=== PATIENT | female | born 1990 | race Caucasian/White ===

== ENCOUNTER 2023-06-05 20:48 | Outpatient (REF) | payer MEDICAID, SELFPAY ==
[2023-06-08 11:09] LABS: Age Gdln ACOG Testing Note (.); HPV Aptima Negative (Negative); IGP, Aptima HPV, rfx 16/18,45 Note (.)
== END 2023-06-05 20:49 | disposition home or self-care (01) ==
LOC: LAB 20:48
PROVIDERS: Visit Provider Physician Assistant
DX: Z01.419 Encounter for gynecological examination (general) (routine) without abnormal findings (principal)
CPT/HCPCS: 87624; G0145

== ENCOUNTER 2024-07-23 19:29 | Outpatient (REF) | payer MEDICAID, SELFPAY ==
--- OUTSIDE RECORDS SUMMARY | 2024-07-19 15:00 | XMS_ITS | Encounter Summary ---
Demographics Address [address] [place] [address] Home Phone Mobile Phone Email Address Preferred Language ENG Marital Status Unknown Jehovah'S Witness Affiliation Unknown Race Other Race Ethnic Group Unknown Author Organization [facility] Address [facility] [place] [address] Care Team Providers Care Conservation Assistant Name Role Phone Genia Swain DO Unavailable [phone] Genia Swainne DO Primary Care Provi cheng Source Comments In the event this information is protected by the Federal Confidentiality of Alcohol and Drug AbusePatient Records regulations: The Federal rules restrict any use of the information to criminally investigate or prosecute any alcohol or drug abuse patient.[facility] Reason for Visit * Reason Comments Rheumatoid Arthritis Encounter Details Date Type Department Care Team (Late st Contact Info) Description 07/19/2024 3:00 PM EDT Office Visit Rheumatology [address] [place] [address] [place] [address] [place] [address] Seronegative rheumatoid arthritis (HCC) (Primary Dx); High risk medication use; Redness of left eye Social History Tobacco Use Types Packs/Day Years Used Date Smoking Tobacco: Former Cigarettes Smokeless Tobacco: Never Tobacco Cessation:Counseling Given: Not Answered Comments:VAPE MULTIPLE TIMES A DAY PHQ-2 Answer Date Recorded PHQ-2 score 0 07/18/2024 Area Deprivation Index Answer Date Hemanth rded National Score (1-100), lower number is lower ri sk 86 08/31/2022 State Score (1-10), lower number is lower risk 8 08/31/2022 Data from: https://www.neighborhoodatlas.medicine.[facility]/. Last address used for calculation [address] 08/31/2022 Comments Unknown Sex and Gender Information Value Date Recorded Sex Assigned at Not on file Legal Sex Female 10:10 AM EST Gender Identity Not on file Sexual Orientation Not on file documented as of this encounter Last Filed Vital Signs Vital Sign Reading Time Taken Comments Blood Pressure 110/75 07/19/2024 2:50 PM EDT Pulse 67 07/19/2024 2:50 PM EDT Temperature - - Respiratory Rate 18 07/19/2024 2:50 PM EDT Oxygen Saturation - - Inhaled Oxygen Concentration - - Weight 94.6 kg (208 lb 8.9 oz) 07/19/2024 2:50 P M EDT Height 177.8 cm (5' 10 ) 07/19/2024 2:50 PM EDT Body Mass Index 29.92 07/19/2024 2:50 PM EDT documented in this encounter Progress Notes * Eliceo Bright MD - 07/19/2024 2:47 PM EDT Images from the original note were not included. Rheumatology Outpatient Clinic Date of Service: 07/19/2024 Patient: Ivis Gray Medical Record: [id number] Primary Care Physician: Genia Blood DO Last Rheumatology visit: 01/30/2024 (with Jose Hopkins) History of Present Illness Ivis Gray is a 34 year old female who presents on 07/19/2024 for an in-person visit for evaluation of Rheumatoid Arthritis. She is currently taking methotrexate sodium, tofacitinib citrate. Ivis is both RF - 9 (04/18/2022) and CCP - 13.5 (04/18/2022) negative. Her most recent FARHANA was negative (04/18/2022). HISTORY OF PRESENT ILLNESS Ivis Gray is a 34 female from [place], [place] with PMHx of anxiety, depression, endometriosis, migraines, tobacco use (vape), and seronegative rheumatoid arthritis who had previously followed closely by my colleague, Sury Fam PA-C. DISEASE HISTORY: Patient reports waking up in November 2021 with stiffness, joint swelling, and aching in her hands. Reports her hands became very swollen to where she couldn't move them. Involved joints include the hands, wrists, knees, feet, and toes. Reports joint swelling in those areas. Pain is worse in the AM.AM joint stiffness the worst till noon but will last all day. PCP initiated PLQ in January 2022 for patient's symptoms. Patient reports possible slight improvement, but overall feels about the same. Possible remote past instance of inflammatory eye disease of the right eye, but unsure if true diagnosis. Patient reports right eye initially thought to have infection, but she ended up seeing an inside parts sales and had to see them multiple times and use many drops to resolve symptoms. Patient doesnot recall a diagnosis of uveitis/iritis/scleritis/episcleritis. She says she was on several eye drops. She says this got better with steroid eye drops, this was ~2020. She went to [facility] in [place], [place]. Denies any known first degree family history of autoimmune conditions. Denies history of psoriasis,IBD, raynaud's, pleural effusion, pericardial effusion, or DVT/PE. There is a history of GAMALIEL in maternal cousin and psoriasis in maternal cousin. OFFICE VISITS: 05/23/22 - Patient with MSK US that show active synovitis in the feet. Patient with seronegative inflammatory arthritis suspect RA phenotype. Patient advised on mechanism of action, administration, monitoring, hold precautions, side effects, and benefits of methotrexate. Patient advised MTX is not compatible with and can cause defects. Patient advised if she desires she would need to be off medication for three months before conception. Patient to take MTX with ramp up to 6 tablets once weekly. Patient to take folic acid 1 mg, once daily. Patient to obtain monitoring labs locally once a month for the first three months than every three months after that. Lab letter sent. Follow up virtually. 08/31/2022 - Patient presents for follow up of inflammatory arthritis, serongative RA phenotype. Patient has not had improvement on MTX 6 tablets weekly and continues to have severe polyarthralgia with joint swelling and AM joint stiffness 3-4 hours. She has had treatment failures of NSADS (celebrex, ibuprofen), hydroxychloroquine and methotrexate. Recommend escalation of therapy to biologic therapy. Patient to inject Humira 40 mg/0.4 mL, 40 mg, subcutaneously once every other week. Patient has negative hepatitis panel and blood tb screening from 04/18/2022 and most recent labs obtained 08/12/2022 CBC/CMP within acceptable limits. She should continue MTX 6 tablets once weekly and folic acid 1 mg daily for now. Will consider de-escalation of MTX after stable on Humira. For her abdominal pain/GERD, patient has had mild improvement on omeprazole 20 mg daily but still has symptoms. Recommend patient take omeprazole 40 mg once daily. If still symptomatic, patient will need referral to specialis t. Follow up in 4 months. 10/03/2022 - Patient presented for acute care visit of left knee swelling and bilateral knee pain. It is too soon after Humira start for it to fully be effective for pain. Risks versus benefits of procedure reviewed with patient and she elected to proceed with left knee aspiration and CSI and right knee CSI. Left knee aspiration was completed first and 6 cc's of serous fluid were obtained. Medrol 40 mg with 4 mL of ropivacaine was administered into the left knee. Patient tolerated well and did not have complications. She did develop vasovagal presyncope after the procedure which resolved with deep breaths, drinking a glass of water, and a cold wash cloth to the forehead. Symptoms of presyncope resolved without incident. Patient still elected to proceed with right knee CSI. Patient tolerated right knee CSI well without complication and was able to ambulate after the procedure. Post-injection instructions were reviewed with the patient and written copy was given. Work letter for [employer] for the next few days was given so that patient can minimize prolonged standing. Follow up asestablished appointment. Continued on Humira and MTX. 10/10/2022 - patient contacted office, significant pain after injections. No fevers, redness, warmth. Humira helping hands/wrists but not knees or ankles. Synovial fluid was NON-INFLAMMATORY with onlyTNC 333 and negative crystal analysis. Likely knees issues are mechanical. Right knee XR 01/14/2022 normal. Recommended MRI knees to further evaluation mechanical etiology of chronic bilateral knee pain and swelling. 12/29/2022 - rheumatology follow-up (virtual and first appointment with me). Taking Humira since 09/28/22 and MTX PO 15 mg weekly + folic acid 1 mg daily. MTX causing fatigue for 3 days and hair loss.AMS 5 hours and only 25% improvement after 3 months of Humira. Lorenzo worse when held MTX for 2 doses. Plan: switch Humira to Simponi 50 mg once per month, continue MTX 15 mg weekly (change to split dose), add-on OTC Mucinex-DM for MTX fatigue. Recommended f/u with ortho for mechanical knee pain and left knee MRI findings of internal derangement. Recommended increase duloxetine from 20 to 40 mg foranxiety and myofascial pain. INTERVAL: - Negative HBV, HCV (01/04/2023) and T-SPOT TB test (01/09/2023) ([facility]) - Normal CBC and normal CMP save for AST slightly elevated at 31 on 01/09/2023 ([facility]) - Insurance preferred Enbrel to Simponi; first Enbrel shipment 01/12/2023 - 01/23/2023 Ortho visit with Susan Cao PA-C: diagnosed with primarily patellofemoral irritation of both knees which is exacerbated by her quadriceps deconditioning. Suggest that we have her fitted with a reaction brace for at least the right knee for now. May consider both knees if necessaryand she feels it would help. Suggest that she discontinue the ibuprofen and we will try meloxicam 15 mg once a day which should be taken with food. Prescription was sent to her pharmacy after discussion of this use and precautions. Will also get her enrolled in a program of physical therapy to helpaddress the quadriceps deconditioning for better patellar control. Follow-up in 6 weeks for recheckif her symptoms persist. May consider a noncrystalline cortisone if necessary. 04/06/2023 - virtual rheumatology follow-up (Jose Hopkins, ) 1. Seronegative RA - Feeling BETTER today. On Enbrel for almost 3 months. Missed 3 doses of Enbrel and MTX when sick with influenza A and felt worse. AM stiffness down from 5 hours to 90-120 mins. Pain is improved in the hands/wrists, elbows, and shoulders, down to 3/10. Feels this works a lot better than Humira. Hasnot tried Mucinex-DM for MTX related fatigue. Possible worsening of existing hair loss with methotrexate. Taking 1 mg folic acid daily. - Reviewed normal methotrexate monitoring labs from 01/09/2023 at [facility]. Plan: continue Enbrel 50 mg SQ weekly, continue MTX 15 mg (split dose), START OTC Mucinex-DM 2. Mechanical knee pain: continue to follow with orthopaedics 3. Anxiety and myofascial pain: continue duloxetine 20 mg (felt paradoxically more anxious on 40 mgdose). 08/09/2023 -- virtual rheumatology follow-up (Jose Hopkins, ) 1. Seronegative RA - Continue to feel quiet well on the current regimen. No missed doses of meds or infections since last visit. AM stiffness 60 minutes, but improved from prior. No significant joint stiffness reported. Taking 2 mg folic acid daily. Mucinex- DM did not make a significant change in MTX-associated fatigue though. Fatigue less bothersome, though. Plan: continue Enbrel 50 mg subcutaneous weekly + MTX 15 mg weekly (split dose) + FA 2 mg daily. 2. Mechanical knee pain --> following with ortho 3. History of anxiety and myofascial pain --> continue duloxetine 20 mg at night INTERVAL HISTORY The patient presents to the Department of Rheumatology for reevaluation and management of her rheumatoid arthritis. The patient is being seen by me for the first time. She carries a diagnosis of seronegative rheumatoid arthritis and had been under the care of Dr. Jose Sparks until recently. Patient 1 last seen in January 2020 for was on combination methotrexate and Enbrel and was switched to combination methotrexate and Xeljanz therapy. Since January she did well on combination therapy andthe plan was to curtail her come off of methotrexate in April 2024 which the patient has done. She is now on Xeljanz 5 mg twice daily as monotherapy. She states this is the best she has done since the diagnosis of her rheumatoid arthritis. She only experiences an element of stiffness in her fingers and wrists in the morning. Prior to that had been fingers, hands, feet and ankles with some wrist involvement in the past. All of the 1 new issue was approximately 3 weeks ago she began to experience watering of the left eye spontaneously. Over time the only was she experiencing watering but she now has redness and pain involving the nasal aspect of her sclera of the left eye. This is becoming more painful. She did see her eye physician who thought it might be an abrasion and is on some topical gel/steroid based medication. Thus far there is have not been much impact. This is the first time she is ever experienced an eye problem like this. Her right eye is uninvolved. She has no other new extra- articular manifestations of rheumatoid arthritis. She does have some bulging disks that have recently flared up and is under the care of her PCP for this. Rheum/Ortho Arthrocentesis Injections (last 5) 10/03/2022 14:10 Injection History Medication - Right 40 mg methylPREDNISolone acetate 40 mg/mL Medication - Left 40 mg methylPREDNISolone acetate 40 mg/mL Location knee Knee Site bilateral knee joints Patient-Entered Data PAIN EVALUATION 07/19/2024 1449 Pain Level: 3 Pain Location: Back-Middle Description: Aching Duration Units: Months may Frequency: Continuous Intervention/Comfort measure: Medication;Reposition;Exercise;Positioning;Other: See comment Comments: chiropractor, PT PROMIS Assessments 07/18/2024 01/30/2024 08/09/2023 PROMIS Assessments Physical Health Percentile 10 4 15 Mental Health Percentile 13 9 13 Pain Score 4 3 3 Pain Interference Percentile 12 8 12 Fatigue Percentile 3 4 8 Physical Function Percentile 18 14 21 RAPID 3 [place] Activities of Daily Living 07/18/2024 2:25 PM 01/30/2024 10:48 AM 08/09/2023 8:50 AM Firstanswer obtained - 04/17/2022 9:47 PM Dress self? With SOME difficulty With SOME difficulty With SOME difficulty With MUCH difficulty Get in and out of bed? With SOME difficulty With SOME difficulty With SOME difficulty With SOME difficulty Walk outdoors? With SOME difficulty With SOME difficulty Without ANY difficulty With SOME difficulty Wash and dry body? With SOME difficulty With SOME difficulty Without ANY difficulty With SOME difficulty Get in and out of car? With SOME difficulty With SOME difficulty Without ANY difficulty With SOME difficulty RAPID 3 Disease Activity Weighed Score Levels: 0 - 1: Near Remission 1.3 - 2.0: Low Severity 2.3 - 4.0: Moderate Severity 4.3 - 10.0: High Severity 07/18/2024 01/30/2024 08/09/2023 RAPID-3 Weighed Score RAPID 3 Weighed Score 4.28 4.78 (High severity ) 3.56 (Moderate severity ) Review of Systems Review of Systems CONSTITUTION: Negative for: Fever and Recent weight change HEENT: Negative for: Nosebleeds, Mouth sores, Trouble swallowing and Dry mouth RESPIRATORY: Negative for: Cough, Shortness of breath and Pain with breathing GASTROINTESTINAL: Negative for: Melena, Diarrhea, Heartburn and Abdominal pain MUSCULOSKELETAL: Positive for: Myalgias and Morning Joint Stiffness Negative for: Arthralgias, Muscle weakness and Joint swelling NEUROLOGICAL: Negative for: Headaches, Numbness and Memory loss SKIN: Positive for: Hair loss Negative for: Rash, Skin changes and Nail changes EYES: Positive for: Eye pain, Eye redness, Eye dryness and Visual disturbance CARDIOVASCULAR: Negative for: Chest pain and Leg swelling GENITOURINARY: Negative for: Dysuria and Hematuria HEMATOLOGIC/LYMPHATIC: Negative for: Swollen glands All other reviewed and negative other than HPI. Past Medical History PAST MEDICAL HISTORY Diagnosis Date Anxiety Depression Endometriosis Mechanical knee pain Migraine Seronegative rheumatoid arthritis (HCC) Tobacco use disorder Past Surgical History No past surgical history on file. Family History FAMILY HISTORY Problem Relation Age of Onset other (thyroid disease) Mother Migraines Mother Gall Stones Father No Known Problems Brother other (GAMALIEL) Maternal cousin Psoriasis Maternal cousin Social History Social History Tobacco Use Smoking status: Former Types: Cigarettes Smokeless tobacco: Never Tobacco comments: VAPE MULTIPLE TIMES A DAY Current Medications DMARDs / Biologics Treatment Start Date Stop Date Stop Reason Comment Diclofenac PO side effects headache and ineffective Hydroxychloroquine 01/2022 side effects palpitations, ineffective Methotrexate PO 15 mg weekly 05/23/2022 present ineffective 10% improvement Prednisone side effects stomach upset Bilateral knee CSI 10/03/2022 Humira 40 mg subcutaneous every 2 weeks 09/28/2022 01/05/2023 ineffective 25% better, helped wrists Enbrel 50 mg subcutaneous weekly 01/12/2023 01/30/2024 ineffective lost efficacy Xeljanz 11 mg daily Rx on 01/30/2024 Current Outpatient Medications Medication Sig folic acid 1 mg tablet Take 1 mg by mouth once daily. LO LOESTRIN FE 1 mg-10 mcg (24)/10 mcg (2) Take 1 tablet by mouth once daily. potassium chloride ER (KLOR-CON) 20 mEq tablet Take 20 mEq by mouth once daily. tiZANidine (ZANAFLEX) 4 mg tablet Take 4 mg by mouth every 6 hours as needed. methotrexate 2.5 mg tablet Take 6 tablets by mouth one time a week. (Patient taking differently: Take 6 tablets by mouth one time a week.) omeprazole (PRILOSEC) 40 mg capsule Take 1 capsule by mouth once daily tofacitinib tablet 5 mg (XELJANZ) Take 1 tablet (5 mg) by mouth two times a day. DULoxetine (CYMBALTA) 20 mg capsule Take 1 capsule by mouth once daily. No current facility-administered medications for this visit. Labs Latest Ref Rng & Units 07/18/2024 02/27/2024 01/30/2024 04/24/2023 CBC WBC 3.70 - 11.00 k/uL 6.16 6.24 7.89 5.6 Hemoglobin 11.5 - 15.5 g/dL 13.4 12.9 12.9 12.1 Hematocrit 36.0 - 46.0 % 40.7 39.3 39.2 37.1 Platelet Count 150 - 400 k/uL 259 318 268 263 Abs Neut (ANC) 1.45 - 7.50 k/uL 3.72 3.63 4.54 3,584 Abs Lymph 1.00 - 4.00 k/uL 1.68 1.99 2.55 1,400 Latest Ref Rng & Units 07/18/2024 02/27/2024 01/30/2024 04/24/2023 CMP Sodium 136 - 144 mmol/L 140 139 140 141 Potassium 3.7 - 5.1 mmol/L 4.0 4.0 3.3 3.9 Chloride 98 - 107 mmol/L 105 104 104 106 CO2 22 - 30 mmol/L 22 25 25 26 Glucose 74 - 99 mg/dL 84 95 81 89 BUN 7 - 21 mg/dL 12 13 10 14 Creatinine 0.58 - 0.96 mg/dL 0.74 0.73 0.68 0.69 Calcium 8.5 - 10.2 mg/dL 9.3 8.9 8.8 8.8 AST 13 - 35 U/L 28 26 19 20 ALT 7 - 38 U/L 20 15 15 18 Alkaline Phosphatase 34 - 123 U/L 47 44 47 43 Latest Ref Rng & Units 01/30/2024 04/18/2022 ESR, WSR WSR 0 - 20 mm/hr 5 2 Latest Ref Rng & Units 01/30/2024 04/18/2022 CRP CRP <0.9 mg/dL <0.3 <0.3 Latest Ref Rng & Units 04/18/2022 C3, C4 C3 86 - 166 mg/dL 109 C4 13 - 46 mg/dL 18 Latest Ref Rng & Units 04/18/2022 RF and CCP Rheumatoid Factor <16 IU/mL <10 CCP Antibody IgG Qualitative Negative Negative CCP Antibody, IgG <20 Units <15 Latest Ref Rng & Units 01/30/2024 01/09/2023 04/18/2022 Hepatitis Screen Hep B Core Ab, IgM NON-REACTIVE NON-REACTIVE Hep B Core Ab, Total Negative Negative Negative Hep B Surf Ab Qual Equivocal NON-REACTIVE Equivocal Hep C Antibody IA Negative Negative Negative Hep B Surface Ag Negative Negative NON-REACTIVE Negative 01/30/2024 04/18/2022 TB Screen TB Interpretation Infection with M. tuberculosis complex is unlikely. If latent tuberculosis infection is highly suspected, a negative result does not rule out the infection. Specimens from immunocompromised patients and those <5 years of age may show false negative results. In case of a contactinvestigation, please repeat 8-12 weeks after a known exposure. Infection with M. tuberculosis complex is unlikely. If latent tuberculosis infection is highly suspected, a negative result does not rule out the infection. Specimens from immunocompromised patients and those <5 years of age may show false negative results. In case of a contact investigation, please repeat 8-12 weeks after a knownexposure. TB Result Negative Negative Latest Ref Rng & Units 04/18/2022 Antibodies FARHANA Negative Negative Imaging Last XR Hand/Finger - Impression Only XR HAND GENERAL 3V PA/LAT/OBL BILATERAL Exam End: 04/18/2022 2:32 PM (Final result) Impression: IMPRESSION: Normal study. Gem Cutter: BLAYNE Transcribe Date/Time: Apr 18 2022 3:00P... Last MRI Hand - Impression Only No resulted procedures found. Last XR Chest - Impression Only XR CHEST 2V FRONTAL/LAT Exam End: 04/18/2022 2:32 PM (Final result) Impression: IMPRESSION: No acute radiographic findings in the chest. ... Last XR Cervical Spine - Impression Only No resulted procedures found. OUTSIDE STUDIES / DATA 01/03/2023: - T-SPOT TB test: negative 01/04/2023: - HBsAb (neg), HBsAg (neg), HBcAb (neg) - HCV Ab (neg) Health Maintenance Current Immunizations Reviewed on 04/04/2023 No immunizations on file. Physical Exam GENERAL APPEARANCE: Well groomed. Alert and oriented x 3. In no distress. VITAL SIGNS: BP 110/75 Pulse 67 Resp 18 Ht 5' 10 (1.78m) Wt 208 lb 8.9 oz (94.6kg) BMI 29.92 kg/(m^2). SKIN: No rash, thickening, nodules, discoloration. EYES: PERRL, EOMI. left eye with scleral injection/erythema on the nasal aspect of the sclera otherwise no other sign of inflammation. HENT: External examination and palpation of the ears and nose normal. Lips, teeth, and gums normal.Oropharynx and tongue normal. No lesions or exudate. NECK: No mass or asymmetry. RESPIRATORY: Normal respiratory effort. Clear to auscultation and percussion. CARDIOVASCULAR: Heart RRR without gallop, murmur, or rub. No bruits across chest or neck. EXTREMITIES: Normal and equal pulses in all 4 extremities. No edema. ABDOMEN: BS normal. No bruits, No tenderness, mass, or hepatosplenomegaly. NEUROLOGIC: Sensory exam normal. MUSCULOSKELETAL EXAMINATION: Soft tissue tender points: None Motor exam: Normal 5+/5+ muscle strength. Normal bulk and tone. Cervical spine: No visible abnormalities. Full ROM. No tenderness to palpation. Thoracic spine: No visible abnormalities. No tenderness to palpation. Lumbar spine: No visible abnormalities. Full ROM. No tenderness to palpation. Joint Exam 07/19/2024 The following joints were examined and normal: Left Sternoclavicular, Right Sternoclavicular, Left Acromioclavicular, Right Acromioclavicular, Left Glenohumeral, Right Glenohumeral, Left Elbow, Right Elbow, Left Wrist, Right Wrist, Left MCP 1, Right MCP 1, Left MCP 2, Right MCP 2, Left MCP 3, Right MCP 3, Left MCP 4, Right MCP 4, Left MCP 5, Right MCP 5, Left IP (thumb), Right IP (thumb), Left PIP 2 (finger), Right PIP 2 (finger), Left PIP 3 (finger), Right PIP 3 (finger), Left PIP 4 (finger), Right PIP 4 (finger), Left PIP 5 (finger), Right PIP 5 (finger), Left Knee, Right Knee, Left Ankle, Right Ankle, Left MTP 1, Right MTP 1, Left MTP 2, Right MTP 2, Left MTP 3, Right MTP 3, Left MTP 4, Right MTP 4, Left MTP 5, Right MTP 5 Joint Exam Data (across time) 07/19/2024 Joint Exam Total Tender 0 Total Swollen 0 Impression Diagnoses: (M06.00) Seronegative rheumatoid arthritis (HCC) (primary encounter diagnosis) (Z79.899) High risk medication use (H57.89) Redness of left eye Plan Orders this visit: Office Visit on 07/19/24 COMPREHENSIVE METABOLIC PANEL COMPLETE BLOOD COUNT AND DIFFERENTIAL folic acid 1 mg tablet LO LOESTRIN FE 1 mg-10 mcg (24)/10 mcg (2) potassium chloride ER (KLOR-CON) 20 mEq tablet tiZANidine (ZANAFLEX) 4 mg tablet Discussed the current status of her seronegative rheumatoid arthritis is stable on monotherapy withXeljanz 5 mg twice daily. Due to the effectiveness of this I am recommending she maintain this and her current supply on Xeljanz is stable. I reviewed her most recent CBC and CMP from yesterday showing good safety stability on the Xeljanz. I am recommending we reassess labs at 3 and 6 months and see her back in 6 months for a visit (can be virtual visit). In terms of the left eye redness and pain there is the possibility this could be representing a scleritis. She will be seeing the eye doctor again in follow-up. If this is in fact scleritis (which seems counterintuitive to me for the extra- articular manifestation of rheumatoid arthritis to flare when the arthritis is responding so well to Xeljanz) she may need to utilize systemic/oral corticosteroids to treat the presumed scleritis. She will keep me posted. Return in about 6 months (around 01/18/2025). I spent a total of 50 minutes on the date of the service which included preparing to see the patient, [id number] patient care, completing clinical documentation, obtaining and/or reviewing separately obtained history, performing a medically appropriate examination, counseling and educating the pat ient/family/caregiver, ordering medications, tests, or procedures, independently interpreting results (not separately reported), and communicating results to the patient/family/caregiver. Medical Decision Making: Problems: Moderate: New problem with uncertain prognosis and 1+ chronic illnesses with change Data: Unique test result(s) reviewed: 3+ Risk: High: High risk from testing/treatment Medical Decision Making Level: 4 - Moderate Eliceo Bright MD Rheumatology Date: July 19, 2024 Time: 2:47 PM documented in this encounter Plan of Treatment Upcoming Encounters Date Type Department Care Team (Late st Contact Info) Description 07/30/2024 9:00 AM EDT Specialty Pharmacy [facility] [address] [place], [place] [id number] [place] [address] Pharmacist, [facility] [address] [place] [address] Refill Xeljanz - PAx 04/21/25 01/21/2025 9:00 AM [facility] [address] [place] [address] [place] [address] [facility] [place], [place] [id number] 6 month follow up Scheduled Orders Name Type Priority Associated Diagnoses Orde r Schedule COMPREHENSIVE METABOLIC PANEL Lab Routine Seronegative rheumatoid arthritis (HCC) Expected: 07/19/2024 (Approximate), Expires: 10/18/2024 COMPLETE BLOOD COUNT AND DIFFERENTIAL Lab Routine Seronegative rheumatoid arthritis (HCC) Expected: 07/19/2024 (Approximate), Expires: 10/18/2024 documented as of this encounter Visit Diagnoses Diagnosis Seronegative rheumatoid arthritis (HCC)- Primary Rheumatoid arthritis High risk medication use Encounter for long-term (current) use of other medications Redness of left eye Redness or discharge of eye documented in this encounter Care Teams Conservation Assistant Relationship Specialty Start Date End Date Genia Swain DO [address] [place] [address] PCP - General Internal Medicine 08/09/23 Genia Swain, [address] [place] [id number] Referring Internal Medicine 04/06/22 documented as of this encounter
--- OUTSIDE RECORDS SUMMARY | 2024-07-23 11:00 | XMS_ITS | Encounter Summary ---
Author Organization [facility] Address [address] [place] [address] Care Team Providers Care Plc Controls Engineer Name Role Phone Genia Steel DO Primary Care Provider Genia Steel DO Unavailable [phone] Reason for Visit * Reason Comments Gynecologic Exam Encounter Details Date Type Department Care Team (Late st Contact Info) Description 07/23/2024 11:00 AM EDT Office Visit [facility] [address] [place] [address] Astrid Leach PA [address] [facility] [address] [place], [facility]11 Well woman exam with routine gynecological exam Social History Tobacco Use Types Packs/Day Years Used Date Smoking Tobacco: Former Cigarettes Q uit: 06/13/2020 Smokeless Tobacco: Never Alcohol Use Standard Drinks/Week Comments Not Currently 0 (1 standard drink = 0.6 oz pur e alcohol) Pt does not drink ETOH AUDIT-C Answer Date Recorded Frequency of Alcohol Consumption Not on file 03/15/2023 Q2: How many drinks containi ng alcohol do you have on a typical day when you are drinking? Patient does not drink Frequency of Binge Drinking Not on file 02/15 Comments Unknown Sex and Gender Information Value Date Recorded Sex Assigned at Not on file Legal Sex Female 6:56 PM EDT Gender Identity Not on file Sexual Orientation Not on file documented as of this encounter Last Filed Vital Signs Vital Sign Reading Time Taken Comments Blood Pressure 112/80 07/23/2024 11:11 AM EDT Pulse - - Temperature - - Respiratory Rate - - Oxygen Saturation - - Inhaled Oxygen Concentration - - Weight 93 kg (205 lb) 07/23/2024 11:11 AM EDT Height - - Body Mass Index 29.41 04/22/2022 12:00 PM EST documented in this encounter Progress Notes * FAYE Enriquez - 07/23/2024 11:00 AM EDT Reason for Appointment: Patient ID: Ivis Gray is a 34 y.o. female who presents for Gynecologic Exam Patient presents today for Annual Exam. MEDICATIONS Current Outpatient Medications Medication Instructions albuterol HFA (Ventolin HFA) 90 mcg/act inhaler 2 puffs, Inhalation, Every 4 hours PRN cetirizine (ZyrTEC) 10 MG tablet Take by mouth DULoxetine (CYMBALTA) 20 mg, Oral, Daily, Do not crush or chew. fluticasone (Flonase) 50 MCG/ACT nasal spray 1 spray, Daily norethindrone-ethinyl estradiol-iron (Lo Loestrin Fe) 1 MG-10 MCG / 10 MCG tablet 1 tablet, Oral, Daily, Take 1 tablet by mouth daily omeprazole (PRILOSEC) 40 mg, Oral, Daily RT potassium chloride CR (Klor-Con M20) 20 MEQ ER tablet 20 mEq, Oral, Daily, Do not crush or chew. tiZANidine (ZANAFLEX) 4 mg, Oral, Every 6 hours PRN tofacitinib (XELJANZ) 5 mg, 2 times daily ALLERGIES Allergies Allergen Reactions Butalbital Other Other Reaction(s): Shakey,Strange feeling Escitalopram Other Other Reaction(s): increased depression/anxiety/mood swings Meloxicam GI intolerance Paroxetine Rash Other Reaction(s): painful skin lesions Penicillins Unknown and Rash Venlafaxine Other Other Reaction(s): no emotions Butalbital-Acetaminophen PROBLEMS Active Ambulatory Problems Diagnosis Date Noted Gastro-esophageal reflux disease without esophagitis 02/27/2023 Mild intermittent asthma without complication ([facility]) 02/27/2023 Seronegative rheumatoid arthritis ([facility]) 02/27/2023 Chronic migraine without aura without status migrainosus, not intractable ([facility]) 03/15/2023 Resolved Ambulatory Problems Diagnosis Date Noted No Resolved Ambulatory Problems No Additional Past Medical History HISTORY PAST MEDICAL HISTORY SOCIAL HISTORY Past Medical History: Diagnosis Date Gastro-esophageal reflux disease without esophagitis 02/27/2023 Mild intermittent asthma without complication ([facility]) 02/27/2023 Seronegative rheumatoid arthritis ([facility]) 02/27/2023 She is following with [facility] Social History Tobacco Use Smoking status: Former Current packs/day: 0.00 Types: Cigarettes Quit date: 06/13/2020 Years since quittin.1 Smokeless tobacco: Never Vaping Use Vaping status: Every Day Substances: Nicotine, Flavoring Substance Use Topics Alcohol use: Not Currently Comment: Pt does not drink ETOH Drug use: Not Currently FAMILY HISTORY Family History Problem Relation Name Age of Onset Other (thyroid disorde) Mother Migraines Mother Bipolar disorder Mother No Known Problems Father Autism Brother SURGICAL HISTORY No past surgical history on file. REVIEW OF SYSTEMS Review of Systems: Review of Systems Constitutional: Negative. HENT: Negative. Eyes: Negative. Respiratory: Negative. Cardiovascular: Negative. Gastrointestinal: Negative. Genitourinary: Negative. Musculoskeletal: Negative. Skin: Negative. Neurological: Negative. All other systems reviewed and are negative. Hematological: Negative. Endocrine: Negative. Allergic/Immunologic: Negative. OBJECTIVE Objective: Physical Exam Constitutional: Appearance: Normal appearance. She is well-developed. Genitourinary: Vulva normal. Cardiovascular: Rate and Rhythm: Normal rate and regular rhythm. Pulmonary: Effort: Pulmonary effort is normal. Breath sounds: Normal breath sounds. Abdominal: General: Bowel sounds are normal. There is no distension. Palpations: Abdomen is soft. Tenderness: There is no abdominal tenderness. There is no guarding or rebound. Musculoskeletal: General: No swelling. Normal range of motion. Right lower leg: No edema. Left lower leg: No edema. Neurological: Mental Status: She is alert and oriented to person, place, and time. Skin: General: Skin is warm and dry. Psychiatric: Mood and Affect: Mood normal. Behavior: Behavior normal. Vitals and nursing note reviewed. Exam conducted with a checker/stocker present. Vitals: Estimated body mass index is 29.41 kg/m?? as calculated from the following: Height as of 04/22/22: 5' 10 . Weight as of this encounter: 205 lb. BP: 112/80 Patient's last menstrual period was 07/10/2024 (exact date). ASSESSMENT & PLAN ICD-10-CM 1. Well woman exam with routine gynecological exam Z01.419 Pap Smear HPV DNA probe, amplified Annual Exam: Patient presents today for an annual exam. Patient states she is doing well and has no complaints. Pap was obtained without difficulty. Orders Placed This Encounter Procedures HPV DNA probe, amplified Patient has small follicular area of redness I believe from self tanning lotion, we will send in keflex. Pt to call if symptoms change or worsen Follow Up: Patient is to return in one year for annual unless needed otherwise. Documented by Radha Villanueva MA on behalf of: FAEY Enriquez documented in this encounter Plan of Treatment Upcoming Encounters Date Type Department Care Team (Late st Contact Info) Description 07/29/2025 11:00 AM EDT Office Visit [facility] [address] [place] [address] Astrid Leach PA [address] [facility] [place] [address] Scheduled Orders Name Type Priority Associated Diagnoses Orde r Schedule Pap Smear Pathology and Cytology Routine Well woman exam with routine gynecological exam Ordered: 07/23/2024 HPV DNA probe, amplified Microbiology Routine Well woman exam with routine gynecological exam Ordered: 07/23/2024 documented as of this encounter Visit Diagnoses Diagnosis Well woman exam with routine gynecological exam Routine gynecological examination documented in this encounter Care Teams Plc Controls Engineer Relationship Specialty Start Date End Date Genia Steel DO [address] [place] [address] PCP - General Internal Medicine 06/21/22 Genia Steel DO [address] [place] [address] PCP - [facility] TANK FARM OPERATOR 05/15/23 documented as of this encounter
--- OUTSIDE RECORDS SUMMARY | 2024-07-23 19:32 | XMS_ITS | Clinical Summary ---
Author Organization [facility] Address [address] [place] [address] Care Team Providers Care Customs And Immigration Officer Name Role Phone Itz CabreraGenia neil DO Unavailable [phone] Genia Swain DO Primary Care Provi cheng Allergies Active Allergy Reactions Criticality Noted Date Comments Penicillins Rash Low 03/21/2014 Medications DULoxetine (CYMBALTA) 20 mg capsule Take 1 capsule by mouth once daily. 3 Active tofacitinib tablet 5 mg (XELJANZ)Indicat ions:Seronegativ e rheumatoid arthritis (HCC) Take 1 tablet (5 mg) by mouth two times a day. 60 tablet 11 07/03/2024 11:55 AM EDT 4 01/30/20 25 Active omeprazole (PRILOSEC) 40 mg capsuleIndicatio ns:Gastroesophag eal reflux disease, unspecified whether esophagitis present Take 1 capsule by mouth once daily 90 capsule 5 Active methotrexate 2.5 mg tabletIndication s:Seronegative rheumatoid arthritis (HCC) Take 6 tablets by mouth one time a week. 72 tablet 5 Active Additional Information Patient taking differently: No details specified, Reason: Dosage Adjustment (stopped due to illness/ provider change .), Reported on 07/19/2024 folic acid 1 mg tablet Take 1 mg by mouth once daily. 3 Active LO LOESTRIN FE 1 mg-10 mcg (24)/10 mcg (2) Take 1 tablet by mouth once daily. 4 Active potassium chloride ER (KLOR-CON) 20 mEq tablet Take 20 mEq by mouth once daily. 4 02/02/20 25 Active tiZANidine (ZANAFLEX) 4 mg tablet Take 4 mg by mouth every 6 hours as needed. Active Active Problems Problem Noted Date Diagnosed Date Patellofemoral disorder of both knees 01/23/2023 Primary osteoarthritis of both knees 01/23/2023 Chronic pain of left knee 01/23/2023 Anxiety 12/28/2022 12/28/2022 Current smoker 12/28/2022 12/28/2022 Overview (12/28/2022): Added secondary to documentation in Social History. Depression 12/28/2022 12/28/2022 Endometriosis 12/28/2022 12/28/2022 Migraine 12/28/2022 12/28/2022 Encounters Date Type Department Care Team Description 07/19/2024 3:00 PM EDT Office Visit Rheumatology [address] [place] [address] Eliceo Bright MD Seronegative rheumatoid arthritis (HCC) (Primary Dx); High risk medication use; Redness of left eye 07/19/2024 Telephone Rheumatology [address] [place] [address] Eliceo Bright MD Resolution Manager - Other ([facility] ) 07/18/2024 Travel 06/25/2024 [facility]ty [facility] [address] [place] [address] Merlyn Randall RPh SPP Inflammatory Conditions - Medication Refill (Xeljanz) 05/28/2024 Specialty Pharmacy [facility] [address] [place] [address] Merlyn Randall RPh SPP Inflammatory Conditions - Medication Refill (Xeljanz) 04/23/2024 Specialty Pharmacy [facility] [address] [place] [address] Merlyn Randall RPh SPP Inflammatory Conditions - Medication Refill (Xeljanz) 04/22/2024 Specialty Pharmacy [facility] [address] [place] [address] Merlyn Randall RPh SPP Inflammatory Conditions - Follow-up (Xeljanz); Insurance Authorization ([place] Renewal Approved) from Last 3 Months Family History Medical History Relation Comments No Known Problems Brother Gall Stones Father GAMALIEL Maternal cousin 1 Psoriasis Maternal cousin 2 Migraines Mother thyroid disease Mother Relation Status Comments Brother Alive Father Alive Maternal cousin 1 Alive Maternal cousin 2 Alive Mother Alive Social History Tobacco Use Types Packs/Day Years [...] is lower risk 8 08/31/2022 Data from: https://www.neighborhoodatlas.medicine.[facility]/. Last address used for calculation [address] [facility] 08/31/2022 Comments Unknown Sex and Gender Information Value Date Recorded Sex Assigned at Not on file Legal Sex Female 10:10 AM EST Gender Identity Not on file Sexual Orientation Not on file Last Filed Vital Signs Vital Sign Reading Time Taken Comments Blood Pressure 110/75 07/19/2024 2:50 PM EDT Pulse 67 07/19/2024 2:50 PM EDT Temperature 36.7 C (98 F) 10/03/2022 1:51 PM EDT Respiratory Rate 18 07/19/2024 2:50 PM EDT Oxygen Saturation - - Inhaled Oxygen Concentration - - Weight 94.6 kg (208 lb 8.9 oz) 07/19/2024 2:50 P M EDT Height 177.8 cm (5' 10 ) 07/19/2024 2:50 PM EDT Body Mass Index 29.92 07/19/2024 2:50 PM EDT Plan of Treatment Upcoming Encounters Date Type Department Care Team (Late st Contact Info) Description 07/30/2024 9:00 AM EDT Specialty [facility]acy [facility] [address] [address] Pharmacist, [facility] [address] [place] [address] [place] [address] Refill Xeljanz - PAx 04/21/25 01/21/2025 9:00 AM EST [facility] [address] [place] [address] [place] [address] [facility] [place], [place] [id number] 6 month follow up Health Maintenance Due Date Last Done Comments Covid-19 Vaccine (#1) 1995 Cervical Cancer Screening 2001 HIV Screening 01/07/2008 DTaP,Tdap,Td Vaccine (1 - Tdap) 2009 Hepatitis B Vaccine (1 of 3 - 19+ 3-dose series) 2009 Pneumococcal Vaccine (1 of 2 - PCV) 2009 Shingrix Vaccine (1 of 2) 2009 Influenza Vaccine (Season Ended) 2024 Hepatitis C Screening Completed 01/30/2024 , 01/30/2024, 01/09/2023, Additional history exists Procedures Procedure Name Priority Date/Time Associated Diagnosis Comments COMPREHENSIVE METABOLIC PANEL Routine 07/18/2024 8:57 AM EDT Long-term current use of tofacitinib Seronegative rheumatoid arthritis (HCC) CBC + DIFF Routine 07/18/2024 8:57 AM EDT Long-term current use of tofacitinib Seronegative rheumatoid arthritis (HCC) HEPATITIS C ANTIBODY IA WITH CONFIRMATION Routine 01/30/2024 1:57 PM EST Seronegative rheumatoid arthritis (HCC) from Last 3 Months or Most Recently Relevant to Health Maintenance Results * COMPREHENSIVE METABOLIC PANEL (07/18/2024 8:57 AM EDT) Protein, Total 7.5 6.3 - 8.0 g/dL 07/18/2024 6:06 PM EDT [facility] Albumin 4.2 3.9 - 4.9 g/dL 07/18/2024 6:06 PM EDT [facility] Calcium, Total 9.3 8.5 - 10.2 mg/dL 07/18/2024 6:06 PM [facility] Bilirubin, Total 0.3 0.2 - 1.3 mg/dL 07/18/2024 6:06 PM [facility] Alkaline Phosphatase 47 34 - 123 U/L 07/18/2024 6:06 PM [facility] AST 28 13 - 35 U/L 07/18/2024 6:06 PM [facility] ALT 20 7 - 38 U/L 07/18/2024 6:06 PM [facility] Glucose 84 74 - 99 mg/dL 07/18/2024 6:06 PM [facility] Comment: The [place] Diabetes Association (ADA) provides guidance for cutoff values for fasting glucose and random glucose. The ADA defines fasting as no caloric intake for at least 8 hours. Fasting plasma glucose results between 100 to 125 mg/dL indicate increased risk for diabetes (prediabetes). Fasting plasma glucose results greater than or equal to 126 mg/dL meet the criteria for diagnosis of diabetes. In the absence of unequivocal hyperglycemia, results should be confirmed by repeat testing. In a patient with classic symptoms of hyperglycemia or hyperglycemic crisis, random plasma glucose results greater than or equal to 200 mg/dL meet the criteria for diagnosis of diabetes. Reference: Standards of Medical Care in Diabetes 2016, [place] Diabetes Association. Diabetes Care. 2016.39(Suppl 1). BUN 12 7 - 21 mg/dL 07/18/2024 6:06 PM [facility] Creatinine 0.74 0.58 - 0.96 mg/dL 07/18/2024 6:06 PM [facility] Sodium 140 136 - 144 mmol/L 07/18/2024 6:06 PM [facility] Potassium 4.0 3.7 - 5.1 mmol/L 07/18/2024 6:06 PM [facility] Chloride 105 98 - 107 mmol/L 07/18/2024 6:06 PM [facility] CO2 22 22 - 30 mmol/L 07/18/2024 6:06 PM [facility] Anion Gap 13 8 - 15 mmol/L 07/18/2024 6:06 PM [facility] Estimated Glomerular Filtration Rate 109 >=60 mL/min/1.7 3m 07/18/2024 6:06 PM EDT [facility] Comment:Estimated Glomerular Filtration Rate (eGFR) is calculated using the 2020 CKD-EPI creatinine equation. This equation utilizes serum creatinine, sex, and age as parameters. The creatinine assay has traceable calibration to isotope dilution- mass spectrometry. Refer to KDIGO guidelines for clinical interpretation. In patients with unstable renal function, e.g. those with acute kidney injury, the eGFR may not accurately reflect actual GFR. Blood BLOOD SPECIMEN / Unknown Venipuncture / Unknown 07/18/2024 8:57 AM EDT 07/18/2024 8:57 AM EDT us Jose Hopkins DO LABORATORY Final Resul t [facility] [address] [place] [address], * COMPLETE BLOOD COUNT AND DIFFERENTIAL (07/18/2024 8:57 AM EDT) WBC 6.16 3.70 - 11.00 k/uL 07/18/2024 9:09 AM EDT [facility] RBC 4.57 3.90 - 5.20 m/uL 07/18/2024 9:09 AM EDT [facility] Hemoglobin 13.4 11.5 - 15.5 g/dL 07/18/2024 9:09 AM EDT [facility] Hematocrit 40.7 36.0 - 46.0 % 07/18/2024 9:09 AM EDT [facility] MCV 89.1 80.0 - 100.0 fL 07/18/2024 9:09 AM EDT [facility] MCH 29.3 26.0 - 34.0 pg 07/18/2024 9:09 AM EDT [facility] MCHC 32.9 30.5 - 36.0 g/dL 07/18/2024 9:09 AM EDT [facility] RDW-CV 13.9 11.5 - 15.0 % 07/18/2024 9:09 AM EDT [facility] Platelet Count 259 150 - 400 k/uL 07/18/2024 9:09 AM EDT [facility] MPV 10.1 9.0 - 12.7 fL 07/18/2024 9:09 AM EDT [facility] Neutrophils % 60.3 % 07/18/2024 9:09 AM EDT [facility] Abs Neut 3.72 1.45 - 7.50 k/uL 07/18/2024 9:09 AM EDT [facility] Lymphocytes % 27.3 % 07/18/2024 9:09 AM EDT [facility] Abs Lymph 1.68 1.00 - 4.00 k/uL 07/18/2024 9:09 AM EDT [facility] Monocytes % 10.1 % 07/18/2024 9:09 AM EDT [facility] Abs Mccracken 0.62 <0.87 k/uL 07/18/2024 9:09 AM EDT [facility] Eosinophils % 1.6 % 07/18/2024 9:09 AM EDT [facility] Abs Eosin 0.10 <0.46 k/uL 07/18/2024 9:09 AM EDT [facility] Basophils % 0.5 % 07/18/2024 9:09 AM EDT [facility] Abs Baso 0.03 <0.11 k/uL 07/18/2024 9:09 AM EDT [facility] Immature Granulocytes % 0.2 % 07/18/2024 9:09 AM EDT [facility] Abs Immature Gran <0.03 <0.10 k/uL 025 9:09 AM EDT [facility] NRBC 0.0 /100 WBC 07/18/2024 9:09 AM EDT [facility] Absolute nRBC <0.01 <0.01 k/uL 07/18/2024 9:09 AM EDT [facility] Diff Type Auto 07/18/2024 9:09 AM EDT [facility] Blood BLOOD SPECIMEN / Unknown Venipuncture / Unknown 07/18/2024 8:57 AM EDT 07/18/2024 8:57 AM EDT Jose Hopkins DO LABORATORY Final Resul t [facility] [address] [place] [address] * HEPATITIS C ANTIBODY IA WITH CONFIRMATION (01/30/2024 1:57 PM EST) Hep C Antibody IA Negative Negative 01/31/2024 11:32 AM EST [facility] Comment:The result suggests no evidence of active infection with Hepatitis C virus. Should recent infection be suspected, repeat testing may be considered 4-6 weeks after this draw. Blood BLOOD SPECIMEN / Unknown Venipuncture / Unknown 01/30/2024 1:57 PM EST 01/30/2024 1:57 PM EST Jose Hopkins DO LABORATORY Final Resul t Performing Organization Address City/[facility]/ZIP Co de Phone Number [facility] [address] [address], from Last 3 Months or Most Recently Relevant to Health Maintenance Insurance * Guarantor: Ivis Gray Account Type Relation to Patient Date of Phone Billing Address Personal/Family Self 1990 [address] [place] [address] [facility] Care Teams Customs And Immigration Officer Relationship Specialty Start Date End Date Genia Swain DO [address] [facility] [address] [place] [id number] PCP - General Internal Medicine 08/09/23 Genia Swain DO [address] [facility] [address] [place] [phone] Referring Internal Medicine 04/06/22
--- OUTSIDE RECORDS SUMMARY | 2024-07-23 19:32 | XMS_ITS | Encounter Summary ---
Demographics Address [address] [place] [address] Home Phone Mobile Phone Email Address Preferred Language ENG Marital Status Unknown Christian Affiliation Unknown Race Other Race Ethnic Group Unknown Author Organization [facility] Address [facility] [place] [address] Care Team Providers Care Supervisor Cell Operation Name Role Phone Genia Swainne DO Unavailable [phone] Genia Swainne DO Primary Care Provi cheng Source Comments In the event this information is protected by the Federal Confidentiality of Alcohol and Drug AbusePatient Records regulations: The Federal rules restrict any use of the information to criminally investigate or prosecute any alcohol or drug abuse patient.[facility] Encounter Details Date Type Department Care Team ([facility] st Contact Info) Description 08/31/2022 Patient Msg Rheumatology [address] [id number] Provider, [facility] Appointment Scheduled Social History Tobacco Use Types Packs/Day Years Used Date Smoking Tobacco: Former Cigarettes Smokeless Tobacco: Never Comments:VAPE MULTIPLE TIMES A DAY PHQ-2 Answer Date Recorded PHQ-2 score 2 08/27/2022 Area Deprivation Index Answer Date Hemanth rded National Score (1-100), lower number is lower ri sk 86 08/31/2022 State Score (1-10), lower number is lower risk 8 08/31/2022 Data from: https://www.neighborhoodatlas.medicine.[place].edu/. Last address used for calculation [address] [facility] 08/31/2022 Comments Unknown Sex and Gender Information Value Date Recorded Sex Assigned at Not on file Legal Sex Female 10:10 AM EST Gender Identity Not on file Sexual Orientation Not on file documented as of this encounter Plan of Treatment Upcoming Encounters Date Type Department Care Team (Late st Contact Info) Description 07/30/2024 9:00 AM EDT Specialty Pharmacy [facility] [address] [facility] [address] [place] [address] Pharmacist, Specialtygroup 2 [facility] [place] [address] Refill Xeljanz - PAx 04/21/25 01/21/2025 9:00 AM EST [facility] [address] [place] [address] [place] [address] [facility] [place] [address] 6 month follow up documented as of this encounter Visit Diagnoses Not on filedocumented in this encounter Care Teams Supervisor Cell Operation Relationship Specialty Start Date End Date Genia Swain DO [address] [place] [address] PCP - General Internal Medicine 08/09/23 Genia Swain DO [address] [place] [phone] Referring Internal Medicine 04/06/22 documented as of this encounter
--- OUTSIDE RECORDS SUMMARY | 2024-07-23 19:32 | XMS_ITS | Encounter Summary ---
Demographics Address [address] [place] [address] Home Phone Mobile Phone Email Address Preferred Language ENG Marital Status Unknown Zoroastrian Affiliation Unknown Race Other Race Ethnic Group Unknown Author Organization [facility] Address [facility] [place] [address] Care Team Providers Care Director Internal Communications Name Role Phone Genia Swain DO Unavailable [phone] Genia Swainne DO Primary Care Provi cheng Source Comments In the event this information is protected by the Federal Confidentiality of Alcohol and Drug AbusePatient Records regulations: The Federal rules restrict any use of the information to criminally investigate or prosecute any alcohol or drug abuse patient.[facility] Encounter Details Date Type Department Care Team ([facility] st Contact Info) Description 02/01/2024 Patient Msg [facility] [address] [place] [address] Merlyn Randall RPh New Medication Action Required Social History Tobacco Use Types Packs/Day Years Used Date Smoking Tobacco: Former Cigarettes Smokeless Tobacco: Never Comments:VAPE MULTIPLE TIMES A DAY PHQ-2 Answer Date Recorded PHQ-2 score 2 04/06/2023 Area Deprivation Index Answer Date Hemanth rded National Score (1-100), lower number is lower ri sk 86 08/31/2022 State Score (1-10), lower number is lower risk 8 08/31/2022 Data from: https://www.neighborhoodatlas.medicine.[facility].edu/. Last address used for calculation [address] [facility] 08/31/2022 Comments Unknown Sex and Gender Information Value Date Recorded Sex Assigned at Not on file Legal Sex Female 10:10 AM EST Gender Identity Not on file Sexual Orientation Not on file documented as of this encounter Plan of Treatment Upcoming Encounters Date Type Department Care Team (Late st Contact Info) Description 07/30/2024 9:00 AM EDT Specialty Pharmacy [facility] [address] [facility] [address] [place] [address] Pharmacist, Specialtygroup 2 [address] [place] [address] Refill Xeljanz - PAx 04/21/25 01/21/2025 9:00 AM EST [facility] [address] [place] [address] [place] [address] [facility] [place] [address] 6 month follow up documented as of this encounter Visit Diagnoses Not on filedocumented in this encounter Care Teams Director Internal Communications Relationship Specialty Start Date End Date Genia Swain DO [address] [facility] [address] [place] [address] PCP - General Internal Medicine 08/09/23 Genia Swain DO [address] [place] [phone] Referring Internal Medicine 04/06/22 documented as of this encounter
--- OUTSIDE RECORDS SUMMARY | 2024-07-23 19:32 | XMS_ITS | Clinical Summary ---
Author Organization [facility] Address [address] [place] [address] Care Team Providers Care Shrimp Packer Name Role Phone Genia Steel DO Primary Care Provider Genia Steel DO Unavailable [phone] Allergies Active Allergy Reactions Criticality Noted Date Comments Butalbital Other Medium 03/14/2023 Other Reaction(s): Shakey,Strange feeling Butalbital-Acetaminophen 06/05/2023 Escitalopram Other Medium 03/14/2023 Other Reaction(s): increased depression/anxiety/moo d swings Meloxicam GI intolerance Medium 06/18/2024 Paroxetine Rash Medium 03/14/2023 Other Reaction(s): painful skin lesions Penicillins Unknown,Rash Medium 03/21/2014 Venlafaxine Other Medium 03/14/2023 Other Reaction(s): no emotions Medications albuterol HFA (Ventolin HFA) 90 mcg/act inhalerIndication s:Mild intermittent asthma with status asthmaticus (CMS/HCC) Inhale 2 puffs every 4 (four) hours if needed for wheezing or shortness of breath 18 g 3 07/27/19 24 Active DULoxetine (Cymbalta) [address] capsuleIndication s:LUDA (generalized anxiety disorder) (CMS/HCC) Take 1 capsule (20 mg) by mouth Daily Do not crush or chew. 90 capsule 3 10/19/19 24 Active potassium chloride CR (Klor-Con M20) 20 MEQ ER tabletIndications :Hypokalemia Take 1 tablet (20 mEq) by mouth Daily Do not crush or chew. 30 tablet 3 02/02/20 24 025 Active norethindrone-eth inyl estradiol-iron (Lo Loestrin Fe) 1 MG-10 MCG / 10 MCG tabletIndications :Endometriosis Take 1 tablet by mouth Daily Take 1 tablet by mouth daily 28 tablet 11 05/04/19 25 026 Active omeprazole (PriLOSEC) [address] capsuleIndication s:Gastro-esophage al reflux disease without esophagitis Take 1 capsule (40 mg) by mouth in the morning. 90 capsule 3 05/28/19 25 Active tofacitinib (Xeljanz) 5 MG tablet Take 5 mg by mouth in the morning and 5 mg before bedtime. Do not crush, chew or split. Swallow whole. Active tiZANidine (Zanaflex) 4 MG tabletIndications :Muscle spasm Take 1 tablet (4 mg) by mouth every 6 (six) hours if needed for muscle spasms for up to 10 days 30 tablet 06/20/19 25 Active fluticasone (Flonase) 50 MCG/ACT nasal spray Administer 1 spray into each nostril Daily Shake gently. Before first use, prime pump. After use, clean tip and replace cap. Active cetirizine (ZyrTEC) 10 MG tablet Take by mouth Active cephalexin (Keflex) 500 MG capsuleIndication s:Well woman exam with routine gynecological exam Take 1 capsule (500 mg) by mouth in the morning and 1 capsule (500 mg) in the evening and 1 capsule (500 mg) before bedtime. Do all this for 7 days. 21 capsule 07/24/19 25 025 Active folic acid (Folvite) 1 MG tablet Take 1 mg by mouth in the morning. 05/15/19 23 025 Discontin ued(Thera py completed ) methotrexate (Trexall) 15 MG tablet Take 15 mg by mouth 1 (one) time per week. Follow directions carefully, and ask to explain any part you do not understand. Take exactly as directed. 025 Discontin ued(Thera py completed ) Active Problems Problem Noted Date Diagnosed Date Chronic migraine without aur a without status migrainosus, not intractable 03/15/2023 Overview (03/15/2023): 02/2023: Hx migraines, but in the last few years only a couple per year. Since having influenza in Feb, she has had a constant GUEVARA with some exacerbations that have put her in bed. Assessment & Plan (03/15/2023 10:46 AM EST): Discussed options to try to break this GUEVARA cycle. Would like to avoid steroids just since she has been on them quite a bit in the past for her RA. I have samples of Qulipta in the office that she will picker and packer. She will take 1 a day for the next week (even if GUEVARA resolves sooner). 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 She is taking methotrexate She started Zeljantz ~01/2025 ( goal is to be able to stop the methotrexate) Encounters Date Type Department Care Team Description 07/23/2024 11:00 AM EDT Office Visit [facility] [address] [facility] [place] [address] Astrid Leach PA Well woman exam with routine gynecological exam 07/23/2024 Bamboo flowsheet [facility] [address] [facility] [place] [address] Astrid Leach PA 07/22/2024 Travel 07/18/2024 Clinisync Result Encounter [facility] External Department Unsolicited Provider, Generic External Data 06/25/2024 10:30 AM EDT Ancillary Procedure [facility] [address] [address] Decreased range of motion of lumbar spine; Radicular pain of lumbosacral region; Abnormal x-ray of lumbar spine 06/25/2024 Results Follow-Up [facility] [address] [place] [address] Genia Steel, DO L4-L5 disc bulge; Decreased range of motion of lumbar spine; Radicular pain of lumbosacral region 06/25/2024 Travel 06/24/2024 Travel 06/19/2024 Telephone [facility] [address] [place] [address] Genia Steel, DO ordering MRI 06/19/2024 Results Follow-Up [facility] [address] [place] [address] Genia Steel, DO 06/19/2024 Telephone [facility] [address] [place] [address] [place], [place] Back Pain 06/18/2024 12:30 PM EDT Ancillary Procedure [facility] XRAY [address] [place] [address] Acute left-sided low back pain with left-sided sciatica 06/18/2024 11:00 AM EDT Office Visit [facility] [address] [place] [address] Genia Steel, DO Acute left-sided low back pain with left-sided sciatica (Primary Dx); Seronegative rheumatoid arthritis (CMS/HCC) 06/18/2024 Travel 06/16/2024 Travel 05/27/2024 Telephone [facility] [address] [place] [address] [place] 05/03/2024 Refill [facility] [address] [place] [address] [place] [phone] Astrid Leach PA Endometriosis from Last 3 Months Family History Medical History Relation Name Comments Autism Brother No Known Problems Father Bipolar disorder Mother Migraines Mother thyroid disorde Mother Relation Name Status Comments Brother Pt has one 1/2 brother Father Alive Mother Alive Social History Tobacco Use Types Packs/Day Years Used Date Smoking Tobacco: Former Cigarettes Q uit: 06/13/2020 Smokeless Tobacco: Never Tobacco Cessation:Counseling Given: No Alcohol Use Standard Drinks/Week Comments Not Currently [...] Pressure 112/80 07/23/2024 11:11 AM EDT Pulse 89 06/18/2024 11:26 AM EDT Temperature - - Respiratory Rate - - Oxygen Saturation 96% 06/18/2024 11:26 AM EDT Inhaled Oxygen Concentration - - Weight 93 kg (205 lb) 07/23/2024 11:11 AM EDT Height 177.8 cm (5' 10 ) 04/22/2022 12:00 PM EST Body Mass Index 29.41 04/22/2022 12:00 PM EST Plan of Treatment Upcoming Encounters Date Type Department Care Team (Late st Contact Info) Description 07/29/2025 11:00 AM EDT Office Visit [facility] [address] [facility] [place] [address] Astrid Leach PA [address] [facility] [place] [address] Health Maintenance Due Date Last Done Comments Cervical Cancer Screening 06/04/2024 HPV/Cotest 06/04/2024 Pap Smear 06/04/2024 06/05/2023 Influenza Vaccine (Season Ended) 2024 11/21/19 13 Procedures Procedure Name Priority Date/Time Associated Diagnosis Comments [facility] COMP METAB 2000 PNL SERPL Routine 07/18/2024 8:57 AM EDT [facility] CBC W AUTO DIFF BLD Routine 07/18/2024 8:57 AM EDT MR LUMBAR SPINE WO CONTRAST Routine 06/25/2024 11:01 AM EDT Decreased range of motion of lumbar spine Radicular pain of lumbosacral region Abnormal x-ray of lumbar spine XR SACROILIAC JOINTS 3+ VIEWS Routine 06/18/2024 12:41 PM EDT Acute left-sided low back pain with left-sided sciatica XR LUMBAR SPINE AP/LAT/FLEX/EXT Routine 06/18/2024 12:41 PM EDT Acute left-sided low back pain with left-sided sciatica PAP SMEAR Routine 06/05/2023 12:00 AM EDT from Last 3 Months or Most Recently Relevant to Health Maintenance Results * [facility] CBC W AUTO DIFF BLD (07/18/2024 8:57 AM EDT) [facility] WBC # BLD AUTO 6.16 3.70 - 11.00 k/uL [facility] RBC # BLD AUTO 4.57 3.90 - 5.20 m/uL [facility] HGB BLD-MCNC 13.4 11.5 - 15.5 g/dL [facility] HCT VFR BLD AUTO 40.7 36.0 - 46.0 % [facility] MCV RBC AUTO 89.1 80.0 - 100.0 fL [facility] MCH RBC QN AUTO 29.3 26.0 - 34.0 pg [facility] MCHC RBC AUTO-MCNC 32.9 30.5 - 36.0 g/dL [facility] RDW RBC-RTO 13.9 11.5 - 15.0 % [facility] PLATELET # BLD AUTO 259 150 - 400 k/uL [facility] PMV BLD AUTO 10.1 9.0 - 12.7 fL [facility] NEUTROPHILS/LEUK NFR BLD AUTO 60.3 % [facility] NEUTROPHILS # BLD AUTO 3.72 1.45 - 7.50 k/uL [facility] LYMPHOCYTES/LEUK NFR BLD AUTO 27.3 % [facility] LYMPHOCYTES # BLD AUTO 1.68 1.00 - 4.00 k/uL [facility] MONOCYTES/LEUK NFR BLD AUTO 10.1 % [facility] MONOCYTES # BLD AUTO 0.62 <0.87 k/uL [facility] EOSINOPHIL/LEUK NFR BLD AUTO 1.6 % [facility]CF EOSINOPHIL # BLD AUTO 0.10 <0.46 k/uL [facility] BASOPHILS/LEUK NFR BLD AUTO 0.5 % [facility] BASOPHILS # BLD AUTO 0.03 <0.11 k/uL [facility] IMM GRANULOCYTES/LEUK NFR BLD AUTO 0.2 % [facility] IMM GRANULOCYTES # BLD AUTO <0.03 <0.10 k/uL [facility] NRBC/100 WBC BLD-RTO 0.0 /100 WBC [facility] NRBC # BLD AUTO <0.01 <0.01 k/uL [facility] DIFFERENTIAL METHOD BLD Auto [facility] 07/18/2024 8:57 AM EDT 07/18/2024 8:57 AM EDT Narrative [facility] - 07/18/2024 9:09 AM EDT Specimen Type: BLOOD SPECIMEN Ordering Facility: [facility] Address: [address] [place], [place] [id number] Original Ordering Provider: CORA VILLARREAL us Generic External Data Provider JESSENIA hassan Result Performing Organization Address City/State/[facility] Co de Phone Number [facility] [address] [place] [address] * [facility] COMP METAB 2000 PNL SERPL (07/18/2024 8:57 AM EDT) [facility] PROT SERPL-[facility] 7.5 6.3 - 8.0 g/dL [facility] ALBUMIN SERPL-MCNC 4.2 3.9 - 4.9 g/dL [facility] CALCIUM SERPL-MCNC 9.3 8.5 - 10.2 mg/dL [facility] BILIRUB SERPL-MCNC 0.3 0.2 - 1.3 mg/dL [facility] ALP SERPL-CC[facility] 47 34 - 123 U/L [facility] AST SERPL-CC[facility] 28 13 - 35 U/L [facility] ALT SERPL-CC[facility] 20 7 - 38 U/L [facility] GLUCOSE SERPL-MC[facility] 84 74 - 99 mg/dL [facility] Comment: The [place] Diabetes Association (ADA) provides guidance for cutoff [...] Standards of Medical Care in Diabetes 2016, [place] Diabetes Association. Diabetes Care. 2016.39(Suppl 1). [facility] BUN SERPL-[facility] 12 7 - 21 mg/dL [facility] CREAT SERPL-MC[facility] 0.74 0.58 - 0.96 mg/dL [facility] SODIUM SERPL-SCNC 140 136 - 144 mmol/L [facility] POTASSIUM SERPL-SCNC 4.0 3.7 - 5.1 mmol/L [facility] CHLORIDE SERPL-SCNC 105 98 - 107 mmol/L [facility] CO2 SERPL-SCNC 22 22 - 30 mmol/L [facility] ANION GAP SERPL-SCNC 13 8 - 15 mmol/L [facility] CREATININE + EGFR PNL SERPLBLD 109 >=60 mL/min/1.7 3m??? [facility] Comment:Estimated Glomerular Filtration Rate (eGFR) is calculated using the 2020 CKD-EPI creatinine equation. This equation utilizes serum creatinine, sex, and age as parameters. The creatinine assay has traceable calibration to isotope dilution- mass spectrometry. Refer to KDIGO guidelines for clinical interpretation. In patients with unstable renal function, e.g. those with acute kidney injury, the eGFR may not accurately reflect actual GFR. 07/18/2024 8:57 AM EDT 07/18/2024 2:18 PM EDT Narrative [facility] - 07/18/2024 6:06 PM EDT Specimen Type: BLOOD SPECIMEN Ordering Facility: [facility] Address: [address] [place], [place] [id number] Original Ordering Provider: CORA VILLARREAL us Generic External Data Provider JESSENIA hassan Result [facility] [address] [facility] [address] [address] * MR lumbar spine wo contrast (06/25/2024 11:01 AM EDT) Anatomical Region Laterality Modality Spine, L-spine Magnetic Resonan ce 06/25/2024 12:4 7 PM EDT Impressions 06/25/2024 12:51 PM EDT Degenerative changes of the lumbar spine as detailed. ELECTRONICALLY SIGNED BY: Eliceo Camacho DO Narrative 06/25/2024 12:51 PM EDT EXAM: MR LUMBAR SPINE WO CONTRAST History: Low back pain. Technique: Multiplanar multisequence MRI of the lumbar spine was obtained without intravenous contrast. Comparison: Lumbar spine radiographs June 18, 2024 Findings: The conus medullaris ends normally. The alignment of the lumbar spine is anatomic. The vertebral body heights are well maintained. There is no aggressive bone marrow signal abnormality. Bilateral lumbarization of S1. Disc desiccation at L4-L5 and L5-S1. Intervertebral disc heights are maintained. L1-L2: No significant disc bulge or high-grade spinal canal or neuroforaminal stenosis. L2-L3: No significant disc bulge or high-grade spinal canal or neuroforaminal stenosis. L3-L4: No significant disc bulge or high-grade spinal canal or neuroforaminal stenosis. L4-L5: Minimal disc bulge with tiny central annular fissure. No neuroforaminal or spinal canal stenosis. L5-S1: Small disc bulge with small superimposed central disc protrusion. Mild bilateral neural foraminal stenosis. No spinal canal stenosis. Visualized paravertebral soft tissues appear within normal limits. Procedure Note Eliceo Camacho DO - 06/25/2024 EXAM: MR LUMBAR SPINE WO CONTRAST History: Low back pain. Technique: Multiplanar multisequence MRI of the lumbar spine was obtainedwithout intravenous contrast. Comparison: Lumbar spine radiographs June 18, 2024 Findings: The conus medullaris ends normally. The alignment of the lumbar spine isanatomic. The vertebral body heights are well maintained. There is no aggressivebone marrow signal abnormality. Bilateral lumbarization of S1. Disc desiccation at L4-L5 and L5-S1. Intervertebral disc heights aremaintained. L1-L2: No significant disc bulge or high-grade spinal canal orneuroforaminal stenosis. L2-L3: No significant disc bulge or high-grade spinal canal orneuroforaminal stenosis. L3-L4: No significant disc bulge or high-grade spinal canal orneuroforaminal stenosis. L4-L5: Minimal disc bulge with tiny central annular fissure. Noneuroforaminal or spinal canal stenosis. L5-S1: Small disc bulge with small superimposed central disc protrusion.Mild bilateral neural foraminal stenosis. No spinal canal stenosis. Visualized paravertebral soft tissues appear within normal limits. IMPRESSION: Degenerative changes of the lumbar spine as detailed. ELECTRONICALLY SIGNED BY: Eliceo Camacho DO Genia Steel DO IMG MRI PROCEDURES Luann l Result * XR LUMBAR SPINE AP/LAT/FLEX/EXT (06/18/2024 12:41 PM EDT) Anatomical Region Laterality Modality Spine, L-spine Radiographic Maritza ging 06/18/2024 7:56 PM EDT Narrative 06/18/2024 7:56 PM EDT XR LUMBAR SPINE AP/LAT/FLEX/EXT Reason for exam: Lower back pain for a couple of months, unable to bend forward, no known injury Views: 4 Findings: There is a list of the lumbar spine to the left in relation to the pelvis and sacrum. The alignment is normal. Vertebral body height is normal at each level. No fracture or bone destruction is evident. Impression: Lumbosacral curvature. No focal abnormalities. Dictated on: 06/18/2024 5:45 PM This report has been electronically signed and approved by the interpreting Radiologist. Procedure Note Yg De La Cruz MD - 06/18/2024 XR LUMBAR SPINE AP/LAT/FLEX/EXT Reason for exam: Lower back pain for a couple of months, unable to bendforward, no known injury Views: 4 Findings: There is a list of the lumbar spine to the left in relationto the pelvis and sacrum. The alignment is normal. Vertebral body heightis normal at each level. No fracture or bone destruction is evident. Impression: Lumbosacral curvature. No focal abnormalities. Dictated on: 06/18/2024 5:45 PM This report has been electronically signed and approved by theinterpreting Radiologist. Genia Steel DO IMG XR PROCEDURES Final Result * XR sacroiliac joints 3+ views (06/18/2024 12:41 PM EDT) Anatomical Region Laterality Modality Sacroiliac joint, Pelvis Radiogr aphic Imaging 06/18/2024 7:57 PM EDT Narrative 06/18/2024 7:57 PM EDT Views: 3 Findings: The alignment is normal. No fracture, dislocation or other acute pathology is demonstrated. No soft tissue abnormalities are seen. Impression: Negative exam. Procedure Note Yg De La Cruz MD - 06/18/2024 Views: 3 Findings: The alignment is normal. No fracture, dislocation or other acutepathology is demonstrated. No soft tissue abnormalities are seen. Impression: Negative exam. Genia Steel DO IMG XR PROCEDURES Final Result * Pap Smear (06/05/2023 12:00 AM EDT) Swab Cervical swab / Unknown Astrid MCKINNEY LAB CYTOLOGY ORDERABLES Final Re sult EXTERNAL LAB from Last 3 Months or Most Recently Relevant to Health Maintenance Insurance * Guarantor: Ivis Gray Account Type Relation to Patient Date of Phone Billing Address Personal/Family Self 1990 [address] [place] [address] [facility] [place] Care Teams Shrimp Packer Relationship Specialty Start Date End Date Genia Steel DO [address] [place] [address] PCP - General Internal Medicine 06/21/22 Genia Steel DO [address] [facility] [address] [place] [address] PCP - GEMA Stevenson ARCHITECT 05/15/23
--- OUTSIDE RECORDS SUMMARY | 2024-07-23 19:32 | XMS_ITS | Encounter Summary ---
Demographics Address [address] [place] [address] Home Phone Mobile Phone Email Address Preferred Language ENG Marital Status Unknown Pentecostalism Affiliation Unknown Race Other Race Ethnic Group Unknown Author Organization [facility] Address [facility] [place] [address] Care Team Providers Care Stud Driver Name Role Phone Genia Swainne DO Unavailable [phone] Genia Swainne DO Primary Care Provi cheng Source Comments In the event this information is protected by the Federal Confidentiality of Alcohol and Drug AbusePatient Records regulations: The Federal rules restrict any use of the information to criminally investigate or prosecute any alcohol or drug abuse patient.[facility] Encounter Details Date Type Department Care Team ([facility] st Contact Info) Description 10/31/2022 Patient Msg Rheumatology [address] [id number] Provider, [facility] Social History Tobacco Use Types Packs/Day Years Used Date Smoking Tobacco: Former Cigarettes Smokeless Tobacco: Never Comments:VAPE MULTIPLE TIMES A DAY PHQ-2 Answer Date Recorded PHQ-2 score 2 10/01/2022 Area Deprivation Index Answer Date Hemanth rded National Score (1-100), lower number is lower ri sk 86 08/31/2022 State Score (1-10), lower number is lower risk 8 08/31/2022 Data from: https://www.neighborhoodatlas.medicine.[facility].edu/. Last address used for calculation [address] [facility] 08/31/2022 Comments Unknown Sex and Gender Information Value Date Recorded Sex Assigned at Not on file Legal Sex Female 10:10 AM EST Gender Identity Not on file Sexual Orientation Not on file documented as of this encounter Plan of Treatment Upcoming Encounters Date Type Department Care Team (Late st Contact Info) Description 07/30/2024 9:00 AM EDT Specialty Pharmacy [facility] [address] [facility] [address] [place] [address] Pharmacist, [facility]ty[facility] 2 [address] [place] [address] Refill Xeljanz - PAx 04/21/25 01/21/2025 9:00 AM EST [facility] [address] [place] [address] [place] [address] [place] [address] 6 month follow up documented as of this encounter Visit Diagnoses Not on filedocumented in this encounter Care Teams Stud Driver Relationship Specialty Start Date End Date Genia Swain DO [address] [place] [address] PCP - General Internal Medicine 08/09/23 Genia Swain DO [address] [place] [address] Referring Internal Medicine 04/06/22 documented as of this encounter
--- OUTSIDE RECORDS SUMMARY | 2024-07-23 19:32 | XMS_ITS | Encounter Summary ---
Demographics Address [address] [place] [address] Home Phone Mobile Phone Email Address Preferred Language ENG Marital Status Unknown Spiritism Affiliation Unknown Race Other Race Ethnic Group Unknown Author Organization [facility] Address [facility] [place] [address] Care Team Providers Care Cp Bleacher Operator Name Role Phone Genia Swain DO Unavailable [phone] Genia Swainne DO Primary Care Provi cheng Source Comments In the event this information is protected by the Federal Confidentiality of Alcohol and Drug AbusePatient Records regulations: The Federal rules restrict any use of the information to criminally investigate or prosecute any alcohol or drug abuse patient.[facility] Reason for Visit * Reason Comments Refill Request Encounter Details Date Type Department Care Team ([facility] Contact Info) Description 02/29/2024 Refill [facility] [address] [address] [place] [address] Jsoe Hopkins DO Refill Request Social History Tobacco Use Types Packs/Day Years Used Date Smoking Tobacco: Former Cigarettes Smokeless Tobacco: Never Comments:VAPE MULTIPLE TIMES A DAY PHQ-2 Answer Date Recorded PHQ-2 score 2 04/06/2023 Area Deprivation Index Answer Date Hemanth rded National Score (1-100), lower number is lower ri sk 86 08/31/2022 State Score (1-10), lower number is lower risk 8 08/31/2022 Data from: https://www.neighborhoodatlas.medicine.[facility].edu/. Last address used for calculation [address] [facility] 08/31/2022 Comments Unknown Sex and Gender Information Value Date Recorded Sex Assigned at Not on file Legal Sex Female 10:10 AM EST Gender Identity Not on file Sexual Orientation Not on file documented as of this encounter Plan of Treatment Upcoming Encounters Date Type Department Care Team (Late st Contact Info) Description 07/30/2024 9:00 AM EDT Specialty Pharmacy [facility] [address] [facility] [address] [place] [address] Pharmacist, [facility]ty[facility] 2 [address] [place] [address] Refill Xeljanz - PAx 04/21/25 01/21/2025 9:00 AM EST [facility] Rheumatology [address] [place] [address] [place] [address] [facility] [place] [address] 6 month follow up documented as of this encounter Visit Diagnoses Diagnosis Seronegative rheumatoid arthritis (HCC) Rheumatoid arthritis documented in this encounter Care Teams Cp Bleacher Operator Relationship Specialty Start Date End Date Genia Swain DO [address] [place] [address] PCP - General Internal Medicine 08/09/23 Genia Swain DO [address] [place] [address] Referring Internal Medicine 04/06/22 documented as of this encounter
--- OUTSIDE RECORDS SUMMARY | 2024-07-23 19:32 | XMS_ITS | Encounter Summary ---
Author Organization [facility] Address [address] [place] [address] Care Team Providers Care Integration Architect Name Role Phone Genia Steel DO Primary Care Provider Genia Steel DO Unavailable [phone] Encounter Details Date Type Department Care Team (Late Contact Info) Description 07/23/2024 Bamboo flowsheet [facility] BCP OB [address] [facility] [place] [address] Astrid Leach PA [address] [place] [address] Dr [place], [facility] Social History Tobacco Use Types Packs/Day Years [...] Encounters Date Type Department Care Team (Late Contact Info) Description 07/29/2025 11:00 AM EDT Office Visit [facility] OB [address] [facility] [place] [address] Astrid Leach PA [address] [facility] [place] [address] documented as of this encounter Visit Diagnoses Not on filedocumented in this encounter Care Teams Integration Architect Relationship Specialty Start Date End Date Genia Steel, [address] [facility] [address] [place] [address] PCP - General Internal Medicine 06/21/22 Genia Steel, DO [address] [facility] [address] [place] [address] PCP - [facility] INTELLECTUAL PROPERTY PARALEGAL 05/15/23 documented as of this encounter
--- OUTSIDE RECORDS SUMMARY | 2024-07-23 19:32 | XMS_ITS | Encounter Summary ---
Author Organization [facility] Address [address] [facility] [place] [address] Care Team Providers Care Corporate Manager Name Role Phone Genia Steel DO Primary Care Provider Genia Steel DO Unavailable [phone] Encounter Details Date Type Department Care Team (Late Contact Info) Description 07/18/2024 Clinisync Result Encounter [facility] External Department Unsolicited Provider, Generic External Data Social History Tobacco Use Types Packs/Day Years [...] EDT Office Visit [facility] [address] [place] [address] Astrid Leach PA [address] [place], [facility] (work) documented as of this encounter Procedures Procedure Name Priority Date/Time Associated Diagnosis Comments [facility] CBC W AUTO DIFF BLD Routine 07/18/2024 8:57 AM EDT [facility] COMP METAB 2000 PNL SERPL Routine 07/18/2024 8:57 AM EDT documented in this encounter Results * [facility] COMP METAB 1999 PNL SERPL (07/18/2024 8:57 AM EDT) [facility] [...] 74 - 99 mg/dL [facility] Comment: The [place] Diabetes Association (ADA) provides guidance for cutoff [...] Standards of Medical Care in Diabetes 2016, [place] Diabetes Association. Diabetes Care. 2016.39(Suppl 1). [facility] [...] AM EDT 07/18/2024 2:18 PM EDT Narrative JESSENIA - 07/18/2024 6:06 PM EDT Specimen Type: BLOOD SPECIMEN Ordering Facility: [facility] Address: [address] [place] [address] Original Ordering Provider: CORA VILLARREAL us Generic External Data Provider JESSENIA hassan Result [facility] [address] [place] [address] * [facility] CBC W AUTO DIFF BLD [...] EDT Specimen Type: BLOOD SPECIMEN Ordering Facility: [facility] Address: [address] [place] [address] Original Ordering Provider: CORA VILLARREAL us Generic External Data Provider CLINISYNC F inal Result [facility] [address] [place] [address] documented in this encounter Visit Diagnoses Not on filedocumented in this encounter Care Teams Corporate Manager Relationship Specialty Start Date End Date Genia Steel DO [address] [place] [address] PCP - General Internal Medicine 06/21/22 Genia Steel DO [address] [place] [address] PCP - [facility] Graham PERMASTONE APPLICATOR 05/15/23 documented as of this encounter
--- OUTSIDE RECORDS SUMMARY | 2024-07-23 19:32 | XMS_ITS | Encounter Summary ---
Demographics Address [address] [place] [address] Home Phone Mobile Phone Email Address Preferred Language ENG Marital Status Unknown Hinduism Affiliation Unknown Race Other Race Ethnic Group Unknown Author Organization [facility] Address [address] [place] [address] Care Team Providers Care Launch Leader Name Role Phone Genia Swain DO Unavailable [phone] Genia Swainne DO Primary Care Provi cheng Source Comments In the event this information is protected by the Federal Confidentiality of Alcohol and Drug AbusePatient Records regulations: The Federal rules restrict any use of the information to criminally investigate or prosecute any alcohol or drug abuse patient.[facility] Encounter Details Date Type Department Care Team ([facility] st Contact Info) Description 12/30/2022 Patient Msg Rheumatology [address] [id number] Provider, [facility] Records Social History Tobacco Use Types Packs/Day Years Used Date Smoking Tobacco: Former Cigarettes Smokeless Tobacco: Never Comments:VAPE MULTIPLE TIMES A DAY PHQ-2 Answer Date Recorded PHQ-2 score 2 12/28/2022 Area Deprivation Index Answer Date Hemanth rded National Score (1-100), lower number is lower ri sk 86 08/31/2022 State Score (1-10), lower number is lower risk 8 08/31/2022 Data from: https://www.neighborhoodatlas.medicine.[facility].edu/. Last address used for calculation [address] [facility] 08/31/2022 Comments Unknown Sex and Gender Information Value Date Recorded Sex Assigned at Not on file Legal Sex Female 10:10 AM EST Gender Identity Not on file Sexual Orientation Not on file documented as of this encounter Plan of Treatment Upcoming Encounters Date Type Department Care Team (Late st Contact Info) Description 07/30/2024 9:00 AM EDT Specialty Pharmacy [facility] [address] [facility] [address] [place] [address] Pharmacist, Specialty[facility] 2 [address] [place] [address] Refill Xeljanz - PAx 04/21/25 01/21/2025 9:00 AM EST [facility] [address] [place] [address] [place] [address] [facility] [place] [address] 6 month follow up documented as of this encounter Visit Diagnoses Not on filedocumented in this encounter Care Teams Launch Leader Relationship Specialty Start Date End Date Genia Swain DO [address] [place] [address] PCP - General Internal Medicine 08/09/23 Genia Swain DO [address] [place] [address] Referring Internal Medicine 04/06/22 documented as of this encounter
--- OUTSIDE RECORDS SUMMARY | 2024-07-23 19:32 | XMS_ITS | Encounter Summary ---
Author Organization [facility] Address [address] [place] [address] Care Team Providers Care Mold Washer Name Role Phone Genia Steel DO Primary Care Provider Genia Steel DO Unavailable [phone] Encounter Details Date Type Department Care Team (Latest Contact Info) Description 07/22/2024 Travel Social History Tobacco Use Types Packs/Day Years [...] EDT Office Visit [facility] [address] [facility] [address] Astrid Leach PA [address] [place], [place] [id number] documented as of this encounter Visit Diagnoses Not on filedocumented in this encounter Care Teams Mold Washer Relationship Specialty Start Date End Date Genia Steel DO [address] [facility] [address] [place] [address] PCP - General Internal Medicine 06/21/22 Genia Steel DO [address] [place] [address] PCP - NOMRiver Stevenson AIRBORNE ELECTRONICS ANALYST 05/15/23 documented as of this encounter
--- OUTSIDE RECORDS SUMMARY | 2024-07-23 19:32 | XMS_ITS | Encounter Summary ---
Demographics Address [address] [place] [address] Home Phone Mobile Phone Email Address Preferred Language ENG Marital Status Unknown Islam Affiliation Unknown Race Other Race Ethnic Group Unknown Author Organization [facility] Address [address] [place] [address] Care Team Providers Care Maritime Officer Name Role Phone Genia Swainne DO Unavailable [phone] Genia Swainne DO Primary Care Provi cheng Source Comments In the event this information is protected by the Federal Confidentiality of Alcohol and Drug AbusePatient Records regulations: The Federal rules restrict any use of the information to criminally investigate or prosecute any alcohol or drug abuse patient.[facility] Encounter Details Date Type Department Care Team (Latest Contact Info) Description 07/18/2024 Travel Social History Tobacco Use Types Packs/Day Years Used Date Smoking Tobacco: Former Cigarettes Smokeless Tobacco: Never Comments:VAPE MULTIPLE TIMES A DAY PHQ-2 Answer Date Recorded PHQ-2 score 0 07/18/2024 Area Deprivation Index Answer Date Hemanth rded National Score (1-100), lower number is lower ri sk 86 08/31/2022 State Score (1-10), lower number is lower risk 8 08/31/2022 Data from: https://www.neighborhoodatlas.medicine.[facility].edu/. Last address used for calculation [address] [facility] 08/31/2022 Comments Unknown Sex and Gender Information Value Date Recorded Sex Assigned at Not on file Legal Sex Female 10:10 AM EST Gender Identity Not on file Sexual Orientation Not on file documented as of this encounter Plan of Treatment Upcoming Encounters Date Type Department Care Team (Late st Contact Info) Description 07/30/2024 9:00 AM EDT Specialty Pharmacy [facility] [address] [facility] [address] [place] [address] Pharmacist, Specialtygroup 2 [facility] [facility] [place] [address] Refill Xeljanz - PAx 04/21/25 01/21/2025 9:00 AM [facility] Rheumatology [address] [place] [address] [place] [address] [facility] [place] [address] 6 month follow up documented as of this encounter Visit Diagnoses Not on filedocumented in this encounter Care Teams Maritime Officer Relationship Specialty Start Date End Date Genia Swain DO [address] [place] [address] PCP - General Internal Medicine 08/09/23 Genia Swain DO [address] [place] [address] Referring Internal Medicine 04/06/22 documented as of this encounter
--- OUTSIDE RECORDS SUMMARY | 2024-07-23 19:32 | XMS_ITS | Encounter Summary ---
Demographics Address [address] [place] [address] Home Phone Mobile Phone Email Address Preferred Language ENG Marital Status Unknown Scientologist Affiliation Unknown Race Other Race Ethnic Group Unknown Author Organization [facility] Address [address] [place] [address] Care Team Providers Care Project Leader Name Role Phone Genia Swainne DO Unavailable [phone] Genia Swain Capri DO Primary Care Provi cheng Source Comments In the event this information is protected by the Federal Confidentiality of Alcohol and Drug AbusePatient Records regulations: The Federal rules restrict any use of the information to criminally investigate or prosecute any alcohol or drug abuse patient.[facility] Encounter Details Date Type Department Care Team ([facility] Contact Info) Description 11/14/2022 [place] [address] Provider, [facility] MRI Screening Questionnaire Completion Required Social History Tobacco Use Types Packs/Day Years Used Date Smoking Tobacco: Former Cigarettes Smokeless Tobacco: Never Comments:VAPE MULTIPLE TIMES A DAY PHQ-2 Answer Date Recorded PHQ-2 score 2 10/01/2022 Area Deprivation Index Answer Date Hemanth rded National Score (1-100), lower number is lower ri sk 86 08/31/2022 State Score (1-10), lower number is lower risk 8 08/31/2022 Data from: https://www.neighborhoodatlas.medicine.[facility].edu/. Last address used for calculation [address] [facility] 08/31/2022 Comments Unknown Sex and [...] Specialty Pharmacy [facility] [address] [facility] [address] [place] [address] Pharmacist, Specialtygroup 2 [address] [place] [address] Refill Xeljanz - PAx 04/21/25 01/21/2025 9:00 AM EST [facility] [address] [place] [address] [place] [address] [facility] [place] [address] 6 month follow up documented as of this encounter Visit Diagnoses Not on filedocumented in this encounter Care Teams Project Leader Relationship Specialty Start Date End Date Genia Swain DO [address] [place] [address] PCP - General Internal Medicine 08/09/23 Genia Swain DO [address] [place] [address] Referring Internal Medicine 04/06/22 documented as of this encounter
--- OUTSIDE RECORDS SUMMARY | 2024-07-23 19:32 | XMS_ITS | Encounter Summary ---
Author Organization [facility] Address [address] [facility] [place] [address] Care Team Providers Care Stitcher Operator Name Role Phone Genia Steel DO Primary Care Provider Genia Steel DO Unavailable [phone] Encounter Details Date Type Department Care Team (Late Contact Info) Description 06/19/2024 Results Follow-Up [facility] [address] [facility] [address] [place] [address] MobleyGenia Campuzano, DO [address] [place] [address] Social History Tobacco Use Types Packs/Day Years [...] EDT Office Visit [facility] BCP OB [address] [facility] [place] [phone] Astrid Leach PA [address] [facility] [place] [address] documented as of this encounter Visit Diagnoses Not on filedocumented in this encounter Care Teams Stitcher Operator Relationship Specialty Start Date End Date Genia Steel, [address] [address] PCP - General Internal Medicine 06/21/22 Genia Steel, DO [address] [address] PCP - [facility] CASH POSTER 05/15/23 documented as of this encounter
--- OUTSIDE RECORDS SUMMARY | 2024-07-23 19:32 | XMS_ITS | Encounter Summary ---
Demographics Address [address] [place] [address] Home Phone Mobile Phone Email Address Preferred Language ENG Marital Status Unknown Jehovah'S Witness Affiliation Unknown Race Other Race Ethnic Group Unknown Author Organization [facility] Address [address] [place] [address] Care Team Providers Care Coronary Clinical Specialist Name Role Phone Genia Swain DO Unavailable [phone] Genia Swainne DO Primary Care Provi cheng Source Comments In the event this information is protected by the Federal Confidentiality of Alcohol and Drug AbusePatient Records regulations: The Federal rules restrict any use of the information to criminally investigate or prosecute any alcohol or drug abuse patient.[facility] Reason for Visit * Reason Comments Grader [employer] - Other [facility] Encounter Details Date Type Department Care Team (Late st Contact Info) Description 07/19/2024 Telephone Rheumatology [address] [place], [place] [phone] [place] [address] [facility] [place] [address] Grader [employer] - Other ([facility] ) Social History Tobacco Use Types Packs/Day Years Used Date Smoking Tobacco: Former Cigarettes Smokeless Tobacco: Never Comments:VAPE MULTIPLE TIMES A DAY PHQ-2 Answer Date Recorded PHQ-2 score 0 07/18/2024 Area Deprivation Index Answer Date Hemanth rded National Score (1-100), lower number is lower ri sk 86 08/31/2022 State Score (1-10), lower number is lower risk 8 08/31/2022 Data from: https://www.neighborhoodatlas.[facility]/. Last address used for calculation [address] [facility] 08/31/2022 Comments Unknown Sex and Gender Information Value Date Recorded Sex Assigned at Not on file Legal Sex Female 10:10 AM EST Gender Identity Not on file Sexual Orientation Not on file documented as of this encounter Miscellaneous Notes * Telephone Encounter - Sharron Valdes LPN - 07/19/2024 3:16 PM EDT Patient states she is experiencing eye issues at new patient visit, last seen rceently by [facility] for treatment . Patient given Release of information form, signed, requested all pertinent information be faxed to [phone]. [address] [place] [address] [facility] p documented in this encounter Plan of Treatment Upcoming Encounters Date Type Department Care Team (Late st Contact Info) Description 07/30/2024 9:00 AM EDT Specialty Pharmacy [facility] [address] [place], [place] [address] [address] Pharmacist, [facility]ty[facility] [address] [place] [id number] Refill Xeljanz - PAx 04/21/25 01/21/2025 9:00 AM EST [facility] [address] [place] [address] [place] [address] [facility] [place] [address] 6 month follow up documented as of this encounter Visit Diagnoses Not on filedocumented in this encounter Care Teams Coronary Clinical Specialist Relationship Specialty Start Date End Date Genia Swain DO [address] [place] [address] PCP - General Internal Medicine 08/09/23 Genia Swain DO [address] [place] [address] Referring Internal Medicine 04/06/22 documented as of this encounter
--- OUTSIDE RECORDS SUMMARY | 2024-07-23 19:33 | XMS_ITS | Encounter Summary ---
Demographics Address [address] [place] [address] Home Phone Mobile Phone Email Address .[employer]poz Preferred Language ENG Marital Status Unknown Mormon Affiliation Unknown Race Other Race Ethnic Group Unknown Author Organization [facility] Address [facility] [place] [address] Care Team Providers Care Program Schedule Clerk Name Role Phone Genia Swainne DO Unavailable [phone] Genia Swainne DO Primary Care Provi cheng Source Comments In the event this information is protected by the Federal Confidentiality of Alcohol and Drug AbusePatient Records regulations: The Federal rules restrict any use of the information to criminally investigate or prosecute any alcohol or drug abuse patient.[facility] Encounter Details Date Type Department Care Team ([facility] st Contact Info) Description 09/09/2022 Patient Msg [facility] [address] [place], [place] [id number] Provider, [facility] Humira injection video Social History Tobacco Use Types Packs/Day Years Used Date Smoking Tobacco: Former Cigarettes Smokeless Tobacco: Never Comments:VAPE MULTIPLE TIMES A DAY PHQ-2 Answer Date Recorded PHQ-2 score 2 08/27/2022 Area Deprivation Index Answer Date Hemanth rded National Score (1-100), lower number is lower ri sk 86 08/31/2022 State Score (1-10), lower number is lower risk 8 08/31/2022 Data from: https://www.neighborhoodatlas.medicine.[facility].edu/. Last address used for calculation [address] [facility] 08/31/2022 Comments Unknown Sex and Gender Information Value Date Recorded Sex Assigned at Not on file Legal Sex Female 10:10 AM EST Gender Identity Not on file Sexual Orientation Not on file documented as of this encounter Plan of Treatment Upcoming Encounters Date Type Department Care Team (Late st Contact Info) Description 07/30/2024 9:00 AM EDT Specialty Pharmacy [facility] [address] [place] [address] Pharmacist, Specialtygroup 2 [address] [place] [address] Refill Xeljanz - PAx 04/21/25 01/21/2025 9:00 AM EST [facility] [address] [place] [address] [place] [address] [facility] [address] 6 month follow up documented as of this encounter Visit Diagnoses Not on filedocumented in this encounter Care Teams Program Schedule Clerk Relationship Specialty Start Date End Date Genia Swain DO [address] [place] [address] PCP - General Internal Medicine 08/09/23 Genia Swain DO [address] [place] [address] Referring Internal Medicine 04/06/22 documented as of this encounter
--- OUTSIDE RECORDS SUMMARY | 2024-07-23 19:33 | XMS_ITS | Encounter Summary ---
Demographics Address [address] [place] [address] Home Phone Mobile Phone Email Address Preferred Language ENG Marital Status Unknown Tenriism Affiliation Unknown Race Other Race Ethnic Group Unknown Author Organization [facility] Address [facility] [place] [address] Care Team Providers Care Mission Assessment Specialist Name Role Phone Genia Swain DO Unavailable [phone] Genia Swainne DO Primary Care Provi cheng Source Comments In the event this information is protected by the Federal Confidentiality of Alcohol and Drug AbusePatient Records regulations: The Federal rules restrict any use of the information to criminally investigate or prosecute any alcohol or drug abuse patient.[facility] Reason for Visit * Reason Onset Date Comments Refill Request 12/10/2023 Encounter Details Date Type Department Care Team (Late st Contact Info) Description 12/10/2023 Refill [facility] LK[facility] [address] [place] [address] Jose Hopkins DO Refill Request Social History Tobacco [...] risk 8 08/31/2022 Data from: https://www.neighborhoodatlas.medicine.[facility].edu/. Last address used for calculation [address] [facility] 08/31/2022 Comments Unknown Sex and Gender Information Value Date Recorded Sex Assigned at Not on file Legal Sex Female 10:10 AM EST Gender Identity Not on file Sexual Orientation Not on file documented as of this encounter Miscellaneous Notes * Telephone Encounter - Demi Narayanan RN - 12/11/2023 11:31 AM EDT Patient due for labs, called patient and let her know, she advises she will go to lab [facility]. Demi Narayanan RN documented in this encounter Plan of Treatment Upcoming Encounters Date Type Department Care Team (Late st Contact Info) Description 07/30/2024 9:00 AM EDT Specialty Pharmacy [facility] [address] [place], [place] [address] [place], [place] [phone] Pharmacist, Specialtygroup [address] [place] [address] Refill Xeljanz - PAx 04/21/25 01/21/2025 9:[address] [facility] Rheumatology [address] [place] [address] [place] [address] [facility] [address] 6 month follow up documented as of this encounter Visit Diagnoses Diagnosis Seronegative rheumatoid arthritis (HCC) Rheumatoid arthritis documented in this encounter Care Teams Mission Assessment Specialist Relationship Specialty Start Date End Date Genia Swain DO [address] [place] [address] PCP - General Internal Medicine 08/09/23 Genia Swain DO [address] [place] [address] Referring Internal Medicine 04/06/22 documented as of this encounter
--- OUTSIDE RECORDS SUMMARY | 2024-07-23 19:33 | XMS_ITS | Clinical Summary ---
Demographics Address [facility] [address] [place] [address] Home Phone Email Address Preferred Language Slovenian Marital Status Single Gnosticist Affiliation Unknown Race White Ethnic Group Not or Lati no Author Organization [facility] Address [id number] [address] [place] [address] Care Team Providers Care Scarf Gluer Name Role Phone Genia Steel DO Primary Care Provider Allergies Active Allergy Reactions Criticality Noted Date Comments Amoxicillin Rash Low 09/17/2016 Penicillins Rash Low 09/17/2016 Medications No known medications Social History Tobacco Use Types Packs/Day Years Used Date Smoking Tobacco: Former Smokeless Tobacco: Never Childcare Answer Date Recorded Childcare Unknown 07/25/2018 Employment Answer Date Recorded Employment Unknown 07/25/2018 Purpose - Life Answer Date Recorded Purpose and direction in life Unknown Comments No Sex and Gender Information Value Date Recorded Sex Assigned at Not on file Legal Sex Female 11:43 AM EDT Gender Identity Not on file Sexual Orientation Not on file Last Filed Vital Signs Vital Sign Reading Time Taken Comments Blood Pressure 105/78 08/04/2020 11:13 PM EDT Pulse 82 08/04/2020 11:13 PM EDT Temperature 37.1 C (98.8 F) 08/04/2020 9:32 PM EDT Respiratory Rate 18 08/04/2020 11:13 PM EDT Oxygen Saturation 99% 08/04/2020 11:13 PM EDT Inhaled Oxygen Concentration - - Weight 97.5 kg (215 lb) 08/04/2020 9:32 PM EDT Height 177.8 cm (5' 10 ) 08/04/2020 9:32 PM EDT Body Mass Index 30.85 08/04/2020 9:32 PM EDT Plan of Treatment Health Maintenance Due Date Last Done Comments Depression Screening 2002 Tobacco Screening 2002 Adult BMI Screening 01/07/2008 DTaP,Tdap and Td Vaccines (1 - Tdap) 2009 Pap Smear 2011 Influenza Vaccine 10/14/2024 Medical Devices Not on file Insurance [employer] Member Subscriber Plan / Payer (Ef fective 2022-Present) Name:Ivis Gray Relation to Subscriber:Self Name:Ivis Gray Payer ID:Not on file Group ID:Not on file Type:Not on file Address: [facility] [id number] [place] [id number] Care Teams Scarf Gluer Relationship Specialty Start Date End Date Genia Steel DO PCP - General 02/16/13
--- OUTSIDE RECORDS SUMMARY | 2024-07-23 19:33 | XMS_ITS | Encounter Summary ---
Demographics Address [address] [place] [address] Home Phone Mobile Phone Email Address Preferred Language ENG Marital Status Unknown Congregational Affiliation Unknown Race Other Race Ethnic Group Unknown Author Organization [facility] Address [facility] [place] [address] Care Team Providers Care Sales Promotion Manager Name Role Phone Genia Swainne DO Unavailable [phone] Genia Swainne DO Primary Care Provi cheng Source Comments In the event this information is protected by the Federal Confidentiality of Alcohol and Drug AbusePatient Records regulations: The Federal rules restrict any use of the information to criminally investigate or prosecute any alcohol or drug abuse patient.[facility] Encounter Details Date Type Department Care Team ([facility] st Contact Info) Description 01/04/2023 Patient Msg Rheumatology [address] [phone] Provider, [facility] Appointment Scheduled Social History Tobacco Use Types Packs/Day Years Used Date Smoking Tobacco: Former Cigarettes Smokeless Tobacco: Never Comments:VAPE MULTIPLE TIMES A DAY PHQ-2 Answer Date Recorded PHQ-2 score 2 12/28/2022 Area Deprivation Index Answer Date Hemanth rded National Score (1-100), lower number is lower ri sk 86 08/31/2022 State Score (1-10), lower number is lower risk 8 08/31/2022 Data from: https://www.neighborhoodatlas.medicine.[facility].edu/. Last address used for calculation [address] [facility] 08/31/2022 Comments Unknown Sex and Gender [...] Pharmacy [facility] [address] [facility] [address] [place] [address] Pharmacist, Specialtygroup 2 [facility] [place] [address] Refill Xeljanz - PAx 04/21/25 01/21/2025 9:00 AM EST [facility] [address] [place] [address] [place] [address] [facility] [place] [place] [address] 6 month follow up documented as of this encounter Visit Diagnoses Not on filedocumented in this encounter Care Teams Sales Promotion Manager Relationship Specialty Start Date End Date Genia Swain DO [address] [place] [address] PCP - General Internal Medicine 08/09/23 Genia Swain DO [address] [place] [address] Referring Internal Medicine 04/06/22 documented as of this encounter
--- OUTSIDE RECORDS SUMMARY | 2024-07-23 19:33 | XMS_ITS | Encounter Summary ---
Demographics Address [address] [place] [address] Home Phone Mobile Phone Email Address Preferred Language ENG Marital Status Unknown Yazidi Affiliation Unknown Race Other Race Ethnic Group Unknown Author Organization [facility] Address [facility] [place] [address] Care Team Providers Care Store Manager Name Role Phone Genia Swain DO Unavailable [phone] Genia Swainne DO Primary Care Provi cheng Source Comments In the event this information is protected by the Federal Confidentiality of Alcohol and Drug AbusePatient Records regulations: The Federal rules restrict any use of the information to criminally investigate or prosecute any alcohol or drug abuse patient.[facility] Reason for Visit * Reason Comments Electronic Communication Encounter Details Date Type Department Care Team ([facility] Contact Info) Description 09/05/2023 Telephone Rheumatology [address] [phone] Jose Hopkins DO Electronic Communication Social History Tobacco Use Types Packs/Day Years Used Date Smoking Tobacco: Former Cigarettes Smokeless Tobacco: Never Comments:VAPE MULTIPLE TIMES A DAY PHQ-2 Answer Date Recorded PHQ-2 score 2 04/06/2023 Area Deprivation Index Answer Date Hemanth rded National Score (1-100), lower number is lower ri sk 86 08/31/2022 State Score (1-10), lower number is lower risk 8 08/31/2022 Data from: https://www.neighborhoodatlas.medicine.[facility].edu/. Last address used for calculation [address] [facility] 08/31/2022 Comments Unknown Sex and Gender Information Value Date Recorded Sex Assigned at Not on file Legal Sex Female 10:10 AM EST Gender Identity Not on file Sexual Orientation Not on file documented as of this encounter Miscellaneous Notes * Telephone Encounter - Astrid Merchant - 09/05/2023 3:48 PM EDT Faxed Labs of 04/06/2023 @ fax # [phone]. Received Confirmation. documented in this encounter Plan of Treatment Upcoming Encounters Date Type Department Care Team (Late st Contact Info) Description 07/30/2024 9:00 AM EDT Specialty Pharmacy [facility] [address] [facility] [place] [address] Pharmacist, Specialtygroup [address] [place] [phone] Refill Xeljanz - PAx 04/21/25 01/21/2025 9:00 AM EST [facility] [address] [place] [address] [place] [address] [facility] [place] [address] 6 month follow up documented as of this encounter Visit Diagnoses Not on filedocumented in this encounter Care Teams Store Manager Relationship Specialty Start Date End Date Genia Swain DO [address] [place] [address] PCP - General Internal Medicine 08/09/23 Genia Swain DO [address] [place] [address] Referring Internal Medicine 04/06/22 documented as of this encounter
--- OUTSIDE RECORDS SUMMARY | 2024-07-23 19:33 | XMS_ITS | Encounter Summary ---
Demographics Address [address] [place] [address] Home Phone Mobile Phone Email Address Preferred Language ENG Marital Status Unknown Adventism Affiliation Unknown Race Other Race Ethnic Group Unknown Author Organization [facility] Address [address] [place] [address] Care Team Providers Care Case Maker Name Role Phone Genia Swain DO Unavailable [phone] Genia Swainne DO Primary Care Provi cheng Source Comments In the event this information is protected by the Federal Confidentiality of Alcohol and Drug AbusePatient Records regulations: The Federal rules restrict any use of the information to criminally investigate or prosecute any alcohol or drug abuse patient.[facility] Encounter Details Date Type Department Care Team ([facility] st Contact Info) Description 11/21/2023 Get Medical Advice [facility] LKWD [address] [place] [address] Jose Hopkins, DO Med refills Social History Tobacco Use Types Packs/Day Years Used Date Smoking Tobacco: Former Cigarettes Smokeless Tobacco: Never Comments:VAPE MULTIPLE TIMES A DAY PHQ-2 Answer Date Recorded PHQ-2 score 2 04/06/2023 Area Deprivation Index Answer Date Hemanth rded National Score (1-100), lower number is lower ri sk 86 08/31/2022 State Score (1-10), lower number is lower risk 8 08/31/2022 Data from: https://www.neighborhoodatlas.medicine.[facility].edu/. Last address used for calculation [address] [facility] 08/31/2022 Comments Unknown Sex and Gender Information Value Date Recorded Sex Assigned at Not on file Legal Sex Female 10:10 AM EST Gender Identity Not on file Sexual Orientation Not on file documented as of this encounter Plan of Treatment Upcoming Encounters Date Type Department Care Team (Late st Contact Info) Description 07/30/2024 9:00 AM EDT Specialty Pharmacy [facility] [address] [facility] [address] [place], [place] [phone] Pharmacist, Specialtygroup 2 [address] [place] [address] Refill Xeljanz - PAx 04/21/25 01/21/2025 9:00 AM EST [facility] Rheumatology [address] [place] [address] [place] [address] [place] [address] 6 month follow up documented as of this encounter Visit Diagnoses Not on filedocumented in this encounter Care Teams Case Maker Relationship Specialty Start Date End Date Genia Swain DO [address] [place] [address] PCP - General Internal Medicine 08/09/23 Genia Swain DO [address] [place] [address] Referring Internal Medicine 04/06/22 documented as of this encounter
--- OUTSIDE RECORDS SUMMARY | 2024-07-23 19:33 | XMS_ITS | Encounter Summary ---
Demographics Address [address] [place] [address] Home Phone Mobile Phone Email Address Preferred Language ENG Marital Status Unknown Mormon Affiliation Unknown Race Other Race Ethnic Group Unknown Author Organization [facility] Address [facility] [place] [address] Care Team Providers Care Flight Manager Name Role Phone Genia Swain DO Unavailable [phone] Genia Swainne DO Primary Care Provi cheng Source Comments In the event this information is protected by the Federal Confidentiality of Alcohol and Drug AbusePatient Records regulations: The Federal rules restrict any use of the information to criminally investigate or prosecute any alcohol or drug abuse patient.[facility] Reason for Visit * Reason Comments Refill Request Encounter Details Date Type Department [facility] Description 12/10/2023 Refill Rheumatology [address] [phone] Jose Hopkins DO Refill Request Social History [...] is lower risk 8 08/31/2022 Data from: https://www.neighborhoodatlas.medicine.[facility].edu/. Last address used for calculation [address] [...] EDT Specialty Pharmacy [facility] [address] [facility] [address] [place] [address] Pharmacist, Specialtygroup 2 [address] [place] [address] Refill Xeljanz - PAx 04/21/25 01/21/2025 9:00 AM EST [facility] Rheumatology [address] [place] [address] [place] [address] [facility] [place] [address] 6 month follow up documented as of this encounter Visit Diagnoses Diagnosis Seronegative rheumatoid arthritis (HCC) Rheumatoid arthritis documented in this encounter Care Teams Flight Manager Relationship Specialty Start Date End Date Genia Swain DO [address] [place] [address] PCP - General Internal Medicine 08/09/23 Genia Swain DO [address] [place] [address] Referring Internal Medicine 04/06/22 documented as of this encounter
--- OUTSIDE RECORDS SUMMARY | 2024-07-23 19:33 | XMS_ITS | Encounter Summary ---
Demographics Address [address] [place] [address] Home Phone Mobile Phone Email Address Preferred Language ENG Marital Status Unknown Nondenominational Affiliation Unknown Race Other Race Ethnic Group Unknown Author Organization [facility] Address [facility] [place] [address] Care Team Providers Care Power Sewing Machine Operator Name Role Phone Genia Swain DO Unavailable [phone] Genia Swainne DO Primary Care Provi cheng Source Comments In the event this information is protected by the Federal Confidentiality of Alcohol and Drug AbusePatient Records regulations: The Federal rules restrict any use of the information to criminally investigate or prosecute any alcohol or drug abuse patient.[facility] Encounter Details Date Type Department Care Team ([facility] st Contact Info) Description 02/26/2023 Get Medical Advice Rheumatology [address] [place] [phone] Jose Hopkins, DO Influenza a Social History Tobacco Use Types Packs/Day Years Used Date Smoking Tobacco: Former Cigarettes Smokeless Tobacco: Never Comments:VAPE MULTIPLE TIMES A DAY PHQ-2 Answer Date Recorded PHQ-2 score 1 01/21/2023 Area Deprivation Index Answer Date Hemanth rded National Score (1-100), lower number is lower ri sk 86 08/31/2022 State Score (1-10), lower number is lower risk 8 08/31/2022 Data from: https://www.neighborhoodatlas.medicine.[facility].edu/. Last address used for calculation [address] [facility] 08/31/2022 Comments Unknown Sex and Gender Information Value Date Recorded Sex Assigned at Not on file Legal Sex Female 10:10 AM EST Gender Identity Not on file Sexual Orientation Not on file documented as of this encounter Plan of Treatment Upcoming Encounters Date Type Department Care Team (Late st Contact Info) Description 07/30/2024 9:00 AM EDT Specialty Pharmacy [facility] [address] [facility] [address] [facility] [address] [place] [address] Pharmacist, Specialtygroup 2 [address] [place] [address] Refill Xeljanz - PAx 04/21/25 01/21/2025 9:00 AM EST [facility] [address] [place] [address] [place] [address] [facility] [place] [address] 6 month follow up documented as of this encounter Visit Diagnoses Not on filedocumented in this encounter Care Teams Power Sewing Machine Operator Relationship Specialty Start Date End Date Genia Swain DO [address] [place] [address] PCP - General Internal Medicine 08/09/23 Genia Swain DO [address] [place] [address] Referring Internal Medicine 04/06/22 documented as of this encounter
--- OUTSIDE RECORDS SUMMARY | 2024-07-23 19:33 | XMS_ITS | Encounter Summary ---
Demographics Address [address] [place] [address] Home Phone Mobile Phone Email Address Preferred Language ENG Marital Status Unknown Rastafari Affiliation Unknown Race Other Race Ethnic Group Unknown Author Organization [facility] Address [address] [place] [address] Care Team Providers Care Plate Worker Name Role Phone Genia Swainne DO Unavailable [phone] Genia Swainne DO Primary Care Provi cheng Source Comments In the event this information is protected by the Federal Confidentiality of Alcohol and Drug AbusePatient Records regulations: The Federal rules restrict any use of the information to criminally investigate or prosecute any alcohol or drug abuse patient.[facility] Encounter Details Date Type Department Care Team ([facility] st Contact Info) Description 08/09/2023 Patient Msg Internal Medicine [place] [phone] [place] [phone] Provider, [facility] appointment Social History Tobacco Use Types Packs/Day Years Used Date Smoking Tobacco: Former Cigarettes Smokeless Tobacco: Never Comments:VAPE MULTIPLE TIMES A DAY PHQ-2 Answer Date Recorded PHQ-2 score 2 04/06/2023 Area Deprivation Index Answer Date Hemanth rded National Score (1-100), lower number is lower ri sk 86 08/31/2022 State Score (1-10), lower number is lower risk 8 08/31/2022 Data from: https://www.neighborhoodatlas.medicine.[facility].edu/. Last address used for calculation [address] [facility] 08/31/2022 Comments Unknown Sex and Gender Information Value Date Recorded Sex Assigned at Not on file Legal Sex Female 10:10 AM EST Gender Identity Not on file Sexual Orientation Not on file documented as of this encounter Plan of Treatment Upcoming Encounters Date Type Department Care Team (Late st Contact Info) Description 07/30/2024 9:00 AM EDT Specialty Pharmacy [facility] [address] [facility] [address] [place] [address] Pharmacist, Specialtygroup 2 [address] [place] [address] Refill Xeljanz - PAx 04/21/25 01/21/2025 9:00 AM EST [facility] [address] [place] [address] [place] [address] [facility] [place] [address] 6 month follow up documented as of this encounter Visit Diagnoses Not on filedocumented in this encounter Care Teams Plate Worker Relationship Specialty Start Date End Date Genia Swain DO [address] [place] [address] PCP - General Internal Medicine 08/09/23 Genia Swain DO [address] [place] [address] Referring Internal Medicine 04/06/22 documented as of this encounter
--- OUTSIDE RECORDS SUMMARY | 2024-07-23 19:33 | XMS_ITS | Encounter Summary ---
Demographics Address [address] [place] [address] Home Phone Mobile Phone Email Address Preferred Language ENG Marital Status Unknown Presybeterian Affiliation Unknown Race Other Race Ethnic Group Unknown Author Organization [facility] Address [facility] [place] [address] Care Team Providers Care Broke Worker Name Role Phone Genia Swain DO Unavailable [phone] Genia Swianne DO Primary Care Provi cheng Source Comments In the event this information is protected by the Federal Confidentiality of Alcohol and Drug AbusePatient Records regulations: The Federal rules restrict any use of the information to criminally investigate or prosecute any alcohol or drug abuse patient.[facility] Encounter Details Date Type Department Care Team ([facility] st Contact Info) Description 02/16/2023 Get Medical Advice Rheumatology [address] [id number] Jose Hopkins, DO Medication Social History Tobacco Use Types Packs/Day Years Used Date Smoking Tobacco: Former Cigarettes Smokeless Tobacco: Never Comments:VAPE MULTIPLE TIMES A DAY PHQ-2 Answer Date Recorded PHQ-2 score 1 01/21/2023 Area Deprivation Index Answer Date Hemanth rded National Score (1-100), lower number is lower ri sk 86 08/31/2022 State Score (1-10), lower number is lower risk 8 08/31/2022 Data from: https://www.neighborhoodatlas.medicine.[facility].edu/. Last address used for calculation [address] [facility] 08/31/2022 Comments Unknown Sex and Gender Information Value Date Recorded Sex Assigned at Not on file Legal Sex Female 10:10 AM EST Gender Identity Not on file Sexual Orientation Not on file documented as of this encounter Plan of Treatment Upcoming Encounters Date Type Department Care Team (Late st Contact Info) Description 07/30/2024 9:00 AM EDT Specialty Pharmacy [facility] [address] [place] [address] Pharmacist, Specialtygroup 2 [facility] [place] [address] Refill Xeljanz - PAx 04/21/25 01/21/2025 9:00 AM EST [facility] [address] [place] [address] [place] [address] [facility] [place] [address] 6 month follow up documented as of this encounter Visit Diagnoses Not on filedocumented in this encounter Care Teams Broke Worker Relationship Specialty Start Date End Date Genia Swain DO [address] [place] [address] PCP - General Internal Medicine 08/09/23 Genia Swain DO [address] [place] [address] Referring Internal Medicine 04/06/22 documented as of this encounter
--- OUTSIDE RECORDS SUMMARY | 2024-07-23 19:33 | XMS_ITS | Encounter Summary ---
Demographics Address [address] [place] [address] Home Phone Mobile Phone Email Address Preferred Language ENG Marital Status Unknown Oriental Orthodox Affiliation Unknown Race Other Race Ethnic Group Unknown Author Organization [facility] Address [facility] [place] [address] Care Team Providers Care Front Desk Officer Name Role Phone Genia Swainne DO Unavailable [phone] Genia Swainne DO Primary Care Provi cheng Source Comments In the event this information is protected by the Federal Confidentiality of Alcohol and Drug AbusePatient Records regulations: The Federal rules restrict any use of the information to criminally investigate or prosecute any alcohol or drug abuse patient.[facility] Encounter Details Date Type Department Care Team ([facility] st Contact Info) Description 05/19/2023 Patient Msg Rheumatology [address] [id number] Provider, Peter Virtual Appoinmtent Time Moved Social History Tobacco Use Types Packs/Day Years Used Date Smoking Tobacco: Former Cigarettes Smokeless Tobacco: Never Comments:VAPE MULTIPLE TIMES A DAY PHQ-2 Answer Date Recorded PHQ-2 score 2 04/06/2023 Area Deprivation Index Answer Date Hemanth rded National Score (1-100), lower number is lower ri sk 86 08/31/2022 State Score (1-10), lower number is lower risk 8 08/31/2022 Data from: https://www.neighborhoodatlas.medicine.[facility].edu/. Last address used for calculation [address] [facility] 08/31/2022 Comments Unknown Sex and Gender [...] Specialty Pharmacy [facility] [address] [facility] [address] [place] [address] Pharmacist, Specialtygroup 2 [address] [place] [address] Refill Xeljanz - PAx 04/21/25 01/21/2025 9:00 AM EST [facility] [address] [place] [address] [place] [address] [place] [address] 6 month follow up documented as of this encounter Visit Diagnoses Not on filedocumented in this encounter Care Teams Front Desk Officer Relationship Specialty Start Date End Date Genia Swain DO [address] [place] [address] PCP - General Internal Medicine 08/09/23 Genia Swain DO [address] [place] [address] Referring Internal Medicine 04/06/22 documented as of this encounter
--- OUTSIDE RECORDS SUMMARY | 2024-07-23 19:33 | XMS_ITS | Encounter Summary ---
Demographics Address [address] [place] [address] Home Phone Mobile Phone Email Address Preferred Language ENG Marital Status Unknown Samaritan Affiliation Unknown Race Other Race Ethnic Group Unknown Author Organization [facility] Address [address] [place] [address] Care Team Providers Care Referral Rn Name Role Phone Genia Swain DO Unavailable [phone] Genia Swainne DO Primary Care Provi cheng Source Comments In the event this information is protected by the Federal Confidentiality of Alcohol and Drug AbusePatient Records regulations: The Federal rules restrict any use of the information to criminally investigate or prosecute any alcohol or drug abuse patient.[facility] Encounter Details Date Type Department Care Team ([facility] st Contact Info) Description 01/02/2023 Get Medical Advice Rheumatology [address] [phone] Jose Hopkins, DO Lab work Social History Tobacco Use Types Packs/Day Years Used Date Smoking Tobacco: Former Cigarettes Smokeless Tobacco: Never Comments:VAPE MULTIPLE TIMES A DAY PHQ-2 Answer Date Recorded PHQ-2 score 2 12/28/2022 Area Deprivation Index Answer Date Hemanth rded National Score (1-100), lower number is lower ri sk 86 08/31/2022 State Score (1-10), lower number is lower risk 8 08/31/2022 Data from: https://www.neighborhoodatlas.medicine.[facility].edu/. Last address used for calculation [address] [facility] 08/31/2022 Comments Unknown Sex and Gender Information Value Date Recorded Sex Assigned at Not on file Legal Sex Female 10:10 AM EST Gender Identity Not on file Sexual Orientation Not on file documented as of this encounter Plan of Treatment Upcoming Encounters Date Type Department Care Team (Late st Contact Info) Description 07/30/2024 9:00 AM EDT Specialty Pharmacy [facility] [address] [place] [address] Pharmacist, Specialtygroup 2 [address] [place] [address] Refill Xeljanz - PAx 04/21/25 01/21/2025 9:00 AM EST [facility] [address] [place] [address] [place] [address] [facility] [place] [address] 6 month follow up documented as of this encounter Visit Diagnoses Not on filedocumented in this encounter Care Teams Referral Rn Relationship Specialty Start Date End Date Genia Swain DO [address] [place] [address] PCP - General Internal Medicine 08/09/23 Genia Swain DO [address] [place] [address] Referring Internal Medicine 04/06/22 documented as of this encounter
--- OUTSIDE RECORDS SUMMARY | 2024-07-23 19:33 | XMS_ITS | Encounter Summary ---
Demographics Address [address] [place] [address] Home Phone Mobile Phone Email Address Preferred Language ENG Marital Status Unknown Mandaeism Affiliation Unknown Race Other Race Ethnic Group Unknown Author Organization [facility] Address [address] [place] [address] Care Team Providers Care Erp Specialist Name Role Phone Genia Swain DO Unavailable [phone] Genia Swainne DO Primary Care Provi cheng Source Comments In the event this information is protected by the Federal Confidentiality of Alcohol and Drug AbusePatient Records regulations: The Federal rules restrict any use of the information to criminally investigate or prosecute any alcohol or drug abuse patient.[facility] Encounter Details Date Type Department Care Team ([facility] st Contact Info) Description 08/14/2023 Get Medical Advice [facility] LKWD [address] [place] [address] Jose Hopkins, DO Lab orders Social History Tobacco Use Types Packs/Day Years Used Date Smoking Tobacco: Former Cigarettes Smokeless Tobacco: Never Comments:VAPE MULTIPLE TIMES A DAY PHQ-2 Answer Date Recorded PHQ-2 score 2 04/06/2023 Area Deprivation Index Answer Date Hemanth rded National Score (1-100), lower number is lower ri sk 86 08/31/2022 State Score (1-10), lower number is lower risk 8 08/31/2022 Data from: https://www.neighborhoodatlas.medicine.[facility].edu/. Last address used for calculation [address] [facility] 08/31/2022 Comments Unknown Sex and Gender Information Value Date Recorded Sex Assigned at Not on file Legal Sex Female 10:10 AM EST Gender Identity Not on file Sexual Orientation Not on file documented as of this encounter Plan of Treatment Upcoming Encounters Date Type Department Care Team (Late st Contact Info) Description 07/30/2024 9:00 AM EDT Specialty Pharmacy [facility] [address] [place] [address] Pharmacist, Specialtygroup 2 [address] [place] [address] Refill Xeljanz - PAx 04/21/25 01/21/2025 9:00 AM EST [facility] Rheumatology [address] [place] [address] [place] [address] [facility] [place] [address] 6 month follow up documented as of this encounter Visit Diagnoses Not on filedocumented in this encounter Care Teams Erp Specialist Relationship Specialty Start Date End Date Genia Swain DO [address] [place] [address] PCP - General Internal Medicine 08/09/23 Genia Swain DO [address] [place] [address] Referring Internal Medicine 04/06/22 documented as of this encounter
--- OUTSIDE RECORDS SUMMARY | 2024-07-23 19:33 | XMS_ITS | Encounter Summary ---
Demographics Address [address] [place] [address] Home Phone Mobile Phone Email Address Preferred Language ENG Marital Status Unknown Congregational Affiliation Unknown Race Other Race Ethnic Group Unknown Author Organization [facility] Address [address] [place] [address] Care Team Providers Care General Assembler Installer Name Role Phone Genia Swain DO Unavailable [phone] Genia Swainne DO Primary Care Provi cheng Source Comments In the event this information is protected by the Federal Confidentiality of Alcohol and Drug AbusePatient Records regulations: The Federal rules restrict any use of the information to criminally investigate or prosecute any alcohol or drug abuse patient.[facility] Encounter Details Date Type Department Care Team ([facility] st Contact Info) Description 08/30/2023 Get Medical Advice [facility] LKWD [address] [place] [address] Jose Hopkins, DO Labs Social History Tobacco Use Types Packs/Day Years Used Date Smoking Tobacco: Former Cigarettes Smokeless Tobacco: Never Comments:VAPE MULTIPLE TIMES A DAY PHQ-2 Answer Date Recorded PHQ-2 score 2 04/06/2023 Area Deprivation Index Answer Date Hemanth rded National Score (1-100), lower number is lower ri sk 86 08/31/2022 State Score (1-10), lower number is lower risk 8 08/31/2022 Data from: https://www.neighborhoodatlas.medicine.[facility].edu/. Last address used for calculation [address] [facility] 08/31/2022 Comments Unknown Sex and Gender Information Value Date Recorded Sex Assigned at Not on file Legal Sex Female 10:10 AM EST Gender Identity Not on file Sexual Orientation Not on file documented as of this encounter Plan of Treatment Upcoming Encounters Date Type Department Care Team (Late st Contact Info) Description 07/30/2024 9:00 AM EDT Specialty Pharmacy [facility] [address] [place] [address] Pharmacist, Specialtygroup 2 [address] [place] [address] Refill Xeljanz - PAx 04/21/25 01/21/2025 9:00 AM EST [facility] [address] [place] [address] [place] [address] [facility] [place] [address] 6 month follow up documented as of this encounter Visit Diagnoses Not on filedocumented in this encounter Care Teams General Assembler Installer Relationship Specialty Start Date End Date Genia Swain DO [address] [place] [address] PCP - General Internal Medicine 08/09/23 Genia Swain DO [address] [place] [address] Referring Internal Medicine 04/06/22 documented as of this encounter
--- OUTSIDE RECORDS SUMMARY | 2024-07-23 19:33 | XMS_ITS | Encounter Summary ---
Demographics Address [address] [place] [address] Home Phone Mobile Phone Email Address Preferred Language ENG Marital Status Unknown Religion Affiliation Unknown Race Other Race Ethnic Group Unknown Author Organization [facility] Address [facility] [place] [address] Care Team Providers Care Tower Climber Name Role Phone Genia Swain DO Unavailable [phone] Genia Swainne DO Primary Care Provi cheng Source Comments In the event this information is protected by the Federal Confidentiality of Alcohol and Drug AbusePatient Records regulations: The Federal rules restrict any use of the information to criminally investigate or prosecute any alcohol or drug abuse patient.[facility] Encounter Details Date Type Department Care Team ([facility] st Contact Info) Description 02/06/2023 Get Medical Advice Rheumatology [address] [phone] Jose Hopkins DO Injection reaction Social History Tobacco Use Types Packs/Day Years Used Date Smoking Tobacco: Former Cigarettes Smokeless Tobacco: Never Comments:VAPE MULTIPLE TIMES A DAY PHQ-2 Answer Date Recorded PHQ-2 score 1 01/21/2023 Area Deprivation Index Answer Date Hemanth rded National Score (1-100), lower number is lower ri sk 86 08/31/2022 State Score (1-10), lower number is lower risk 8 08/31/2022 Data from: https://www.neighborhoodatlas.medicine.[facility].edu/. Last address used for calculation [address] [facility] 08/31/2022 Comments Unknown Sex and Gender [...] Specialty Pharmacy [facility] [address] [place] [address] Pharmacist, Specialtygroup 2 [address] [place] [address] Refill Xeljanz - PAx 04/21/25 01/21/2025 9:00 AM EST [facility] [address] [place] [address] [place] [address] [facility] [address] 6 month follow up documented as of this encounter Visit Diagnoses Not on filedocumented in this encounter Care Teams Tower Climber Relationship Specialty Start Date End Date Genia Swain DO [address] [place] [address] PCP - General Internal Medicine 08/09/23 Genia Swain DO [address] [place] [address] Referring Internal Medicine 04/06/22 documented as of this encounter
--- OUTSIDE RECORDS SUMMARY | 2024-07-23 19:33 | XMS_ITS | Encounter Summary ---
Demographics Address [address] [place] [address] Home Phone Mobile Phone Email Address Preferred Language ENG Marital Status Unknown Presybeterian Affiliation Unknown Race Other Race Ethnic Group Unknown Author Organization [facility] Address [address] [place] [address] Care Team Providers Care Steel Cutter Name Role Phone Genia Swain DO Unavailable [phone] Genia Swainne DO Primary Care Provi cheng Source Comments In the event this information is protected by the Federal Confidentiality of Alcohol and Drug AbusePatient Records regulations: The Federal rules restrict any use of the information to criminally investigate or prosecute any alcohol or drug abuse patient.[facility] Encounter Details Date Type Department Care Team ([facility] st Contact Info) Description 01/26/2024 Get Medical Advice [facility] LKWD [address] [place] [address] Jose Hopkins, DO Appointment Social History Tobacco Use Types Packs/Day Years Used Date Smoking Tobacco: Former Cigarettes Smokeless Tobacco: Never Comments:VAPE MULTIPLE TIMES A DAY PHQ-2 Answer Date Recorded PHQ-2 score 2 04/06/2023 Area Deprivation Index Answer Date Hemanth rded National Score (1-100), lower number is lower ri sk 86 08/31/2022 State Score (1-10), lower number is lower risk 8 08/31/2022 Data from: https://www.neighborhoodatlas.medicine.[facility].edu/. Last address used for calculation [address] [facility] 08/31/2022 Comments Unknown Sex and Gender Information Value Date Recorded Sex Assigned at Not on file Legal Sex Female 10:10 AM EST Gender Identity Not on file Sexual Orientation Not on file documented as of this encounter Plan of Treatment Upcoming Encounters Date Type Department Care Team (Late st Contact Info) Description 07/30/2024 9:00 AM EDT Specialty Pharmacy [facility] [address] [place] [address] Pharmacist, Specialtygroup 2 [address] [place] [address] Refill Xeljanz - PAx 04/21/25 01/21/2025 9:00 AM EST [facility] [address] [place] [address] [place] [address] [place] [address] 6 month follow up documented as of this encounter Visit Diagnoses Not on filedocumented in this encounter Care Teams Steel Cutter Relationship Specialty Start Date End Date Genia Swain DO [address] [place] [address] PCP - General Internal Medicine 08/09/23 Genia Swain DO [address] [place] [address] Referring Internal Medicine 04/06/22 documented as of this encounter
--- OUTSIDE RECORDS SUMMARY | 2024-07-23 19:33 | XMS_ITS ---
Demographics Address [address] [place] [address] Home Phone Mobile Phone Email Address Preferred Language ENG Marital Status Unknown Temple Affiliation Unknown Race Other Race Ethnic Group Unknown Author Organization [facility] Address [address] [place], [place] [address] Care Team Providers Care Director Of Social Work Name Role Phone Genia Swain DO Unavailable [phone] Genia Swain DO Primary Care Provi [facility] Rheumatoid Arthritis Status:Enrolled (Active) Start date:02/01/2024 Enrollment date:02/01/2024 Linked medications:tofacitinib citrate (Active) Continued Care and Services Coordination
--- OUTSIDE RECORDS SUMMARY | 2024-07-23 19:33 | XMS_ITS | Encounter Summary ---
Demographics Address [address] [place] [address] Home Phone Mobile Phone Email Address Preferred Language ENG Marital Status Unknown Hindu Affiliation Unknown Race Other Race Ethnic Group Unknown Author Organization [facility] Address [facility] [place] [address] Care Team Providers Care Farmworker Fruit Name Role Phone Genia Swain DO Unavailable [phone] Genia Swainne DO Primary Care Provi cheng Source Comments In the event this information is protected by the Federal Confidentiality of Alcohol and Drug AbusePatient Records regulations: The Federal rules restrict any use of the information to criminally investigate or prosecute any alcohol or drug abuse patient.[facility] Reason for Visit * Reason Comments Radiology XR Encounter Details Date Type Department Care Team ([facility] st Contact Info) Description 01/23/2023 Radiology Radiology [address] [place] [address] Italo Giron RT(R) Radiology XR Social History Tobacco Use Types Packs/Day Years Used Date Smoking Tobacco: Former Cigarettes Smokeless Tobacco: Never Comments:VAPE MULTIPLE TIMES A DAY PHQ-2 Answer Date Recorded PHQ-2 score 1 01/21/2023 Area Deprivation Index Answer Date Hemanth rded National Score (1-100), lower number is lower ri sk 86 08/31/2022 State Score (1-10), lower number is lower risk 8 08/31/2022 Data from: https://www.neighborhoodatlas.medicine.[facility].edu/. Last address used for calculation [address] [facility] 08/31/2022 Comments Unknown Sex and Gender Information Value Date Recorded Sex Assigned at Not on file Legal Sex Female 10:10 AM EST Gender Identity Not on file Sexual Orientation Not on file documented as of this encounter Progress Notes * Italo Giron RT(R) - 01/23/2023 9:49 AM EST Radiology Service Progress Note PATIENT NAME: Ivis Gray DATE OF SERVICE: January 23, 2023 TIME: 9:49 AM PATIENT IDENTITY VERIFICATION COMPLETED USING TWO (2) IDENTIFIERS: Name and Date of confirmedby patient verbally. FALL SCREENING: Has the patient had 2 falls in the last year or 1 fall with injury or currently using an Ambulatory Assistive Device (Walker, Cane, Wheelchair, Crutches, etc.)? No PATIENT GENDER DATA: Female. status: : No status: NO. PATIENT RELEVANT IMPLANT DATA REVIEWED: Not Applicable RADIOLOGY DEPARTMENT: General X-ray: Exam(s) Completed: Lower Extremity X- Ray(s): Knee, AP / Lat / Tunne / Merchant Bilateral and Wt. Bearing PERIPHERAL IV DATA: Not applicable SIGNED BY: RT Inna(R) January 23, 2023 9:49 AM documented in this encounter Plan of Treatment Upcoming Encounters Date Type Department Care Team (Late st Contact Info) Description 07/30/2024 9:00 AM EDT Specialty Pharmacy [facility] [address] [place], [place] [address] [address] Pharmacist, Specialtygroup [address] [place] [address] Refill Xeljanz - PAx 04/21/25 01/21/2025 9:00 AM EST [facility]ology [address] [place] [address] [place] [address] [place] [address] 6 month follow up documented as of this encounter Visit Diagnoses Not on filedocumented in this encounter Care Teams Farmworker Fruit Relationship Specialty Start Date End Date Genia Swain DO [address] [place] [address] PCP - General Internal Medicine 08/09/23 Genia Swain DO [address] [place] [address] Referring Internal Medicine 04/06/22 documented as of this encounter
[2024-07-29 14:08] LABS: Age Gdln ACOG Testing Note (.); HPV Aptima Negative (Negative); IGP, Aptima HPV, rfx 16/18,45 Note (.)
== END 2024-07-23 19:30 | disposition home or self-care (01) ==
LOC: LAB 19:29
PROVIDERS: Visit Provider Physician Assistant
DX: Z01.419 Encounter for gynecological examination (general) (routine) without abnormal findings (principal)
CPT/HCPCS: 87624; 88175